=== PATIENT | male | born 1955 | race Caucasian/White ===

== ENCOUNTER 2016-07-08 12:55 | Observation (INO) | payer OTHER ==
[~2016-07-08] VITALS: Ht 190.5 cm; Wt 108.0 kg
[2016-07-08] MEDS ORDERED: SODIUM CHLORIDE 0.9% 1000ML 1,000 ML IV STA ×2 (13:27→17:57)
[2016-07-08] MEDS ORDERED: HYDROmorphone INJ 1 MG/ML SYR IV STA ×3 (13:27→15:48)
[2016-07-08] MEDS ORDERED: OMEP20CA9 PO (14:11)
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
[2016-07-08] MEDS ORDERED: LORAZEPAM 2 MG/ML 1 ML VIAL IV STA (14:38)
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
[2016-07-08] MEDS ORDERED: OXYC1TAB3 PO (17:25)
[2016-07-08] MEDS ORDERED: CYCL10TA6 PO (17:25)
[2016-07-08 17:27] LABS: POTASSIUM 4.3 mmol/L (3.5-5.1)
[2016-07-08 17:30] LABS: BASO % 0.4 %; BASO ABS # 0.04 K/uL (0-0.2); COMPLETE YES; EOS % 6.5 %; HEMATOCRIT 43.4 % (42-52); IG% 0.8 %; LYMPH % 22.4 %; LYMPH ABS # 2.51 K/uL (1.2-3.4); MEAN CELL VOLUME 92.9 fL (80-100); MEAN CORPUSCULAR HEMOGLOBIN 31.9 pg (25-34); MEAN CORPUSCULAR HGB CONC 34.3 g/dl (32-36); MEAN PLATELET VOLUME 9.8 fL (7.4-10.4); MONO % 9.3 %; NEUT % 60.6 %; PLATELET COUNT 357 K/uL (130-400); RED BLOOD COUNT 4.67 M/uL (4.7-6.1); WHITE BLOOD COUNT 11.22 K/uL (4.8-10.8)
[2016-07-08] MEDS ORDERED: FLEXERIL HOME PACK 10 MG VIAL PO ONE (17:30)
[2016-07-08] MEDS ORDERED: OXYCODONE IR HOME PACK PO ONE (17:30)
[2016-07-08 17:57] VITALS: Ht 190.5 cm; Wt 108.0 kg
[2016-07-08] MEDS ORDERED: OPTIRAY 320 IV PRN (18:15)
[2016-07-08] MEDS ORDERED: POLYETHYLENE (MIRALAX) 17 GM PACK PO PRN (18:30)
[2016-07-08] MEDS ORDERED: MoRPHine SULFATE 4 MG/ML 1 ML CARP\\VIAL IV PRN (18:30)
[2016-07-08] MEDS ORDERED: ACETAMINOPHEN 325 MG TAB PO PRN (18:30)
[2016-07-08] MEDS ORDERED: ENOXAPARIN 40 MG/0.4 ML SYR SQ SCH (18:30)
[2016-07-08] MEDS ORDERED: INFLUENZA VIRUS QUAD VACCINE 0.5 ML SYR IM. ONE ×2 (18:30→20:45)
[2016-07-08] MEDS ORDERED: ONDANSETRON INJ 2 MG/ML 2 ML VIAL IV PRN (18:30)
[2016-07-08] MEDS ORDERED: OXYCODONE/ACETAMINOPHEN 7.5-325 TAB PO PRN (18:30)
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
[2016-07-08 20:04] VITALS: O2SAT 93
[2016-07-08] MEDS ORDERED: INFLUENZA ADMINISTRATION CHARGE ONE (20:45)
[2016-07-08] MEDS ORDERED: IV FLUIDS COMPLETED PRN (21:00)
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
[2016-07-08] MEDS: LIDODERM (LIDOCAINE) PATCH 5% TD SCH (21:58)
[2016-07-08] MEDS: OXYCODONE/ACETAMINOPHEN 7.5-325 TAB PO SCH (21:58)
[2016-07-08] MEDS: LISINOPRIL/HCTZ 10/12.5MG TAB PO SCH (21:59)
[2016-07-08 22:08] LABS: INR 0.9 (0.9-1.1); PROTHROMBIN TIME (PATIENT) 9.8 SECONDS (9.0-12.0)
[2016-07-08 23:25] VITALS: BP 152/81; PULSE 96; TEMP 36.4; O2SAT 92
[2016-07-09] MEDS: OXYCODONE/ACETAMINOPHEN 7.5-325 TAB PO SCH ×5 (02:32→20:44)
[2016-07-09 05:42] LABS: HEMATOCRIT 39.5 % (42-52); MEAN CELL VOLUME 92.9 fL (80-100); MEAN CORPUSCULAR HEMOGLOBIN 31.5 pg (25-34); MEAN CORPUSCULAR HGB CONC 33.9 g/dl (32-36); PLATELET COUNT 280 K/uL (130-400); RED BLOOD COUNT 4.25 M/uL (4.7-6.1); WHITE BLOOD COUNT 7.51 K/uL (4.8-10.8)
[2016-07-09 06:02] LABS: INR 0.9 (0.9-1.1); PROTHROMBIN TIME (PATIENT) 9.9 SECONDS (9.0-12.0)
[2016-07-09 07:10] VITALS: BP 125/75; PULSE 88; TEMP 36.9; O2SAT 94
[2016-07-09] MEDS: HYDROmorphone INJ 1 MG/ML SYR IV PRN ×2 (07:24→10:03)
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
[2016-07-09] MEDS: LISINOPRIL/HCTZ 10/12.5MG TAB PO SCH (08:32)
[2016-07-09] MEDS: PANTOprazole SOD 40 MG TAB PO SCH (08:32)
[2016-07-09] MEDS: LIDODERM (LIDOCAINE) PATCH 5% TD SCH (08:33)
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
[2016-07-09 14:58] VITALS: BP 128/74; PULSE 89; TEMP 36.6; O2SAT 93
[2016-07-09] MEDS: DOCUSATE SODIUM 100 MG CAP PO SCH (20:43)
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
[2016-07-09 23:25] VITALS: BP 125/77; PULSE 92; TEMP 36.8; O2SAT 93
[2016-07-10] MEDS: OXYCODONE/ACETAMINOPHEN 7.5-325 TAB PO SCH ×4 (01:06→12:10)
[2016-07-10 03:20] VITALS: BP 128/74; PULSE 91; TEMP 36.7; O2SAT 92
[2016-07-10] MEDS ORDERED: PERFLUTREN LIPID MICROSPHERE (DEFINITY) IV ONE (07:37)
[2016-07-10 07:41] VITALS: BP 147/81; PULSE 90; TEMP 36.6; O2SAT 91
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
[2016-07-10] MEDS: DOCUSATE SODIUM 100 MG CAP PO SCH (08:26)
[2016-07-10] MEDS: LIDODERM (LIDOCAINE) PATCH 5% TD SCH (08:26)
[2016-07-10] MEDS: LISINOPRIL/HCTZ 10/12.5MG TAB PO SCH (08:26)
[2016-07-10] MEDS: PANTOprazole SOD 40 MG TAB PO SCH (08:26)
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
--- NOTE | 2016-07-10 09:18 | PROGRESS NOTE ---
DATE: 07/10/2016 SUBJECTIVE: He is improved this morning. Pain is decreased. Brace has been fitted. He has no bowel and bladder consequences. No neurological issues to report. He is alert, oriented. Examination is benign. 5/5 strength. Good sensation and motor ability. He does have continued pain. Images reviewed demonstrating a nondisplaced fracture of the L1 vertebral body, it is a compression fracture. They are painful. There is minimal displacement. It is a nonsurgical entity. IMPRESSION: Status post compression fracture. DISPOSITION: Back brace for support. Medication for support and pain control. Lidocaine patch is a good idea. Toradol sometimes can be very helpful in the ____ situations. He should just be up, ambulating, bed rest. This takes time to heal. I will see him back for followup examination in 2-3 weeks.
--- NOTE | 2016-07-10 10:31 | ECHOCARDIOGRAM REPORT ---
*NOTICE TO RECEIVING DEMOCRAT AGENCY This information is strictly Confidential and protected under [place] law. [place] law prohibits you from making any further disclosure of this information unless further disclosure is expressly permitted by the written consent of the person to whom it pertains or is authorized by law. A general authorization for the release of medical or other information is not sufficient for this purpose. Hospital accepts no responsibility if the information is made available to any other person, INCLUDING THE PATIENT. Interpretation Summary * Name: GAYLE RFAGA Study Date: 07/10/2016 06:42 AM BP: 147/81 mmHg * Patient Location: C.3E\S\E310\S\1 HR: 90 * : 1955 (M/d/yyyy) Gender: Male Height: 75 in * Age: 61 yrs Ethnicity: CA Weight: 238 lb * Ordering Physician: Elaine Yoon * Referring Physician: Self, Referred * Performed By: Sandor Toledo RCS * * Reason For Study: CHEST PAIN * BSA: 2.4 m2 * -- Conclusions -- * Normal LV chamber size and wall thickness. * Normal LV systolic function, EF 55-60%. * No segmental left ventricular wall motion abnormalities are noted. * Grade II diastolic dysfunction. * Aortic valve sclerosis mild, without significant aortic valvular stenosis. Mild to moderate aortic regurgitation with a anteriorly directed jet. Procedure Details * A complete two-dimensional transthoracic echocardiogram was performed (2D, M-mode, Doppler and color flow Doppler). Left Ventricle * The left ventricle is normal in size. * There is normal left ventricular wall thickness. * Ejection Fraction = 55-60%. * Left ventricular systolic function is normal. * No segmental left ventricular wall motion abnormalities are noted. * The left ventricular wall motion is normal. Right Ventricle * The right ventricular cavity size is normal (basal dimension <4.2 cm in right ventricular apical 4-chamber view). * The right ventricular systolic function is normal as assessed by tricuspid annular plane systolic excursion (TAPSE) (normal >1.5 cm). Atria * The left atrial size is normal. * Right atrial size is normal. * No ASD detected; PFO is not assessed. Mitral Valve * The mitral valve is normal in structure and function. Tricuspid Valve * The tricuspid valve is normal in structure and function. Aortic Valve * The aortic valve is trileaflet. * Aortic valve sclerosis mild, without significant aortic valvular stenosis. * No hemodynamically significant valvular aortic stenosis. * Mild to moderate aortic regurgitation. Pulmonic Valve * The pulmonary valve is not well seen, but the Doppler examination is normal without significant regurgitation or stenosis. Great Vessels * The aortic root is normal size. Pericardium/Pleural * There is no pericardial effusion. Left Ventricular Diastolic Function * Diastolic dysfunction, Grade II (pseudonormalization pattern). MMode 2D Measurements and Calculations IVSd 0.97 cm IVSs 1.2 cm LVIDd 6.0 cm LVIDs 4.4 cm LVPWd 1.1 cm IVS/LVPW 0.90 FS 27.2 % EDV(Teich) 181.0 ml ESV(Teich) 86.7 ml EF(Teich) 52.1 % EDV(cubed) 217.6 ml ESV(cubed) 83.9 ml EF(cubed) 61.4 % % IVS thick 26.6 % LV mass(C)d 256.5 grams LV mass(C)dI 108.6 grams/m\S\2 CO(Teich) 9.0 l/min CI(Teich) 3.8 l/min/m\S\2 SV(Teich) 94.4 ml SI(Teich) 39.9 ml/m\S\2 CO(cubed) 12.7 l/min CI(cubed) 5.4 l/min/m\S\2 SV(cubed) 133.7 ml SI(cubed) 56.6 ml/m\S\2 Ao root diam 3.8 cm Ao root area 11.5 cm\S\2 ACS 1.5 cm LA dimension 3.9 cm LA/Ao 1.0 LVOT diam 2.3 cm LVOT area 4.1 cm\S\2 LVAd ap4 49.8 cm\S\2 LVLd ap4 10.8 cm EDV(MOD-sp4) 188.0 ml LVAs ap4 26.9 cm\S\2 LVLs ap4 9.1 cm ESV(MOD-sp4) 64.5 ml EF(MOD-sp4) 65.7 % LVAd ap2 39.0 cm\S\2 LVLd ap2 9.5 cm EDV(MOD-sp2) 132.0 ml LVAs ap2 22.5 cm\S\2 LVLs ap2 8.1 cm ESV(MOD-sp2) 50.6 ml EF(MOD-sp2) 61.7 % CO(MOD-sp4) 11.7 l/min CI(MOD-sp4) 5.0 l/min/m\S\2 SV(MOD-sp4) 123.5 ml SI(MOD-sp4) 52.3 ml/m\S\2 CO(MOD-sp2) 7.7 l/min CI(MOD-sp2) 3.3 l/min/m\S\2 SV(MOD-sp2) 81.4 ml SI(MOD-sp2) 34.5 ml/m\S\2 Doppler Measurements and Calculations MV E max florin 65.5 cm/sec MV A max florin 57.5 cm/sec MV E/A 1.1 MV P1/2t max florin 100.8 cm/sec MV P1/2t 98.3 msec MVA(P1/2t) 2.2 cm\S\2 MV dec slope 300.3 cm/sec\S\2 MV dec time 0.27 sec Ao V2 max 255.9 cm/sec Ao max PG 26.5 mmHg Ao max PG (full) 21.9 mmHg Ao V2 mean 162.5 cm/sec Ao mean PG 12.8 mmHg Ao mean PG (full) 10.5 mmHg Ao V2 VTI 45.4 cm KWAKU(I,A) 1.6 cm\S\2 KWAKU(I,D) 1.6 cm\S\2 KWAKU(V,A) 1.7 cm\S\2 KWAKU(V,D) 1.7 cm\S\2 AI max florin 493.0 cm/sec AI max PG 97.2 mmHg AI dec slope 368.9 cm/sec\S\2 AI P1/2t 391.4 msec LV V1 max PG 4.6 mmHg LV V1 mean PG 2.3 mmHg LV V1 max 107.7 cm/sec LV V1 mean 70.7 cm/sec LV V1 VTI 17.4 cm SV(Ao) 520.7 ml SI(Ao) 220.4 ml/m\S\2 SV(LVOT) 71.2 ml SI(LVOT) 30.1 ml/m\S\2 PA V2 max 103.2 cm/sec PA max PG 4.3 mmHg PI max florin 175.8 cm/sec PI max PG 12.4 mmHg PI dec slope 137.8 cm/sec\S\2 PI P1/2t 373.6 msec
[2016-07-10 10:53] VITALS: BP 107/71; PULSE 94; TEMP 36.2; O2SAT 92
[2016-07-10] MEDS ORDERED: LDDP5 TD (12:17)
[2016-07-10] MEDS ORDERED: LSN/10125 PO (12:17)
[2016-07-10] MEDS ORDERED: CLC100 PO (12:17)
[2016-07-10] MEDS ORDERED: OXYC7.5T62 PO (12:17)
[2016-07-10] MEDS ORDERED: MRLP17 PO (12:17)
--- NOTE | 2016-07-10 13:06 | Discharge Instructions ---
Discharge Instructions Admission Reason for Admission: Back Pain Discharge Discharge Diagnosis / Problem: traumatic L3 vertebral fracture, 3/4 traumatic right rib fractures Discharge Goals Goal(s): Decrease discomfort, Prevent Disease Progression Activity Recommendations Activity Limitations: resume your previous activity Lifting Limitations: gradually increase as tolerated Exercise/Sports Limitations: gradually increase as tolerated Shower/Bathe: no limitations Driving or Machine Use: Do not drive after rafael pain medications . Instructions / Follow-Up Instructions / Follow-Up Please take all medications as instructed. You have been given a narcotic, oxycodone, to take for pain. This can cause constipation, so you have also been given laxatives to help your bowels move. Please do not drink alcohol or drive while taking this medication. Please note that it contains Tylenol and you may not exceed more than 3000mg of Tylenol from all sources in 24 hours. You have also been given a blood pressure medication to take which requires you to obtain non-fasting blood work in 2 weeks. You have been provided a prescription to get this done, or your PCP can order it for you. Please avoid using NSAIDs for pain while taking this drug (NSAIDs include aspirin, Motrin, Ibuprofen, Naproxen, Aleve, Mobic, etc) until otherwise instructed by PCP. Please ensure follow-up with Dr. Bryce Napier (Orthopedic Spine Surgeon) in the office in 2-3 weeks as instructed. You have a follow-up appointment scheduled with Dr. Jass Ortega for Jul 17 at 1300. Please bring all paperwork from this hospitalization with you to this appointment. It was a pleasure taking care of you! Call if you have any questions or problems. You can reach a [facility] hospitalist on duty at [facility] 24 hours a day by calling [phone]. Take care of yourself. Elaine Yoon DO [facility] Hospitalist Current Hospital Diet Patient's current hospital diet: AHA Diet (Heart Healthy) Discharge Diet Recommended Diet: Regular Diet Procedures Procedures Performed: None. Pending Studies Studies pending at discharge: no Medical Emergencies . Who to Call and When: Medical Emergencies: If at any time you feel your situation is an emergency, please call 911 immediately. . Non-Emergent Contact Non-Emergency issues call your: Primary Care Provider . . "Provider Documentation" section prepared by Elaine Yoon. VTE Core Measure Inpt VTE Proph given/why not?: SCD's, Contraindicated (poss hemothorax)
[2016-07-10 13:11] VITALS: BP 107/71; PULSE 94; TEMP 36.2; O2SAT 92
--- NOTE | 2016-07-10 14:08 | SURGERY PROGRESS NOTE ---
DATE: 07/10/2016 Mr. Washington was seen today. He feels better. Pain medication has been manipulated and he does feel better. In addition, his x-ray looks quite good. I do not really see much in the way of any fluid. He if anything has a bit of atelectasis on the left. All in all I think he looks good. I do not think any intervention is going to be required on our part. It would be good to get him up and moving around as he is at risk of a pulmonary embolism given his pain and inability to move freely.
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
== END 2016-07-10 15:30 | disposition home or self-care (01) ==
LOC: ENRESERVDT → ENRESERVTM → ENRESERV → EDBD 12:55 → C.EDC 12:56 → C.3E 18:30
PROVIDERS: ADMIT Hospitalist; ATTEND Internal Medicine
DX: S32.030A Wedge compression fracture of third lumbar vertebra, initial encounter for closed fracture (principal); S22.41XA Multiple fractures of ribs, right side, initial encounter for closed fracture; V43.52XA Car driver injured in collision with other type car in traffic accident, initial encounter; J90 Pleural effusion, not elsewhere classified; R07.89 Other chest pain; I10 Essential (primary) hypertension; M79.1 Myalgia; M62.838 Other muscle spasm

== ENCOUNTER → 2016-07-16 | Outpatient (CLI) | payer OTHER ==
[~2016-07-16] MED LIST: CLC100 PO; LDDP5 TD; LSN/10125 PO; MRLP17 PO; OMEP20CA9 PO; OXYC7.5T62 PO
[2016-07-16 16:42] LABS: BLOOD UREA NITROGEN 37 mg/dl (7-18); GLUCOSE 116 mg/dl (70-99)
[2016-07-16 16:43] LABS: BUN/CREATININE RATIO 26.5 (10-20); CALCIUM 9.9 mg/dl (8.5-10.1); CARBON DIOXIDE 28 mmol/L (21-32); CHLORIDE 103 mmol/L (98-107); POTASSIUM 4.5 mmol/L (3.5-5.1); SODIUM 139 mmol/L (136-145)
== END | disposition home or self-care (01) ==
LOC: C.LABBFT 10:47
PROVIDERS: ATTEND Hospitalist
DX: I10 Essential (primary) hypertension (principal)

== ENCOUNTER 2017-07-16 17:52 | Inpatient (IN) | payer OTHER ==
[~2017-07-16] VITALS: Ht 190.5 cm; Wt 105.5 kg
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
[2017-07-16 18:38] LABS: BASO ABS # 0.13 K/uL (0-0.2); EOS % 9.3 %; EOS ABS # 0.59 K/uL (0-0.5); HEMATOCRIT 41.2 % (42-52); HEMOGLOBIN 13.3 g/dL (14.0-18.0); IG# 0.01 K/uL (0.00-0.02); LYMPH % 15.9 %; LYMPH ABS # 1.01 K/uL (1.2-3.4); MEAN CELL VOLUME 93.2 fL (80-100); MEAN CORPUSCULAR HEMOGLOBIN 30.1 pg (25-34); MEAN CORPUSCULAR HGB CONC 32.3 g/dl (32-36); MEAN PLATELET VOLUME 9.5 fL (7.4-10.4); MONO % 9.1 %; MONO ABS # 0.58 K/uL (0.11-0.59); NEUT % 63.5 %; NEUT ABS # 4.05 K/uL (1.4-6.5); PLATELET COUNT 384 K/uL (130-400); RED CELL DISTRIBUTION WIDTH CV 14.3 % (11.5-14.5); RED CELL DISTRIBUTION WIDTH SD 48.6 fL (36.4-46.3); WHITE BLOOD COUNT 6.37 K/uL (4.8-10.8)
--- NOTE | 2017-07-16 18:41 | DIAGNOSTIC IMAGING REPORT ---
CHEST ONE VIEW PORTABLE CLINICAL HISTORY: Atypical chest pain and shortness of breath COMPARISON STUDY: 07/10/2016 FINDINGS: The heart is enlarged. There is radiographic evidence of congestive failure/fluid overload. There is a small right pleural effusion. There is a 4 cm right midlung zone opacity. 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 Radiographic follow-up is recommended[. There is no evidence of lobar consolidation IMPRESSION: 1. Cardiomegaly and radiographic evidence of mild congestive failure/fluid overload 2. Small right pleural effusion 3. 4 cm right midlung zone opacity, likely representing fluid loculated within the fissure. Radiographic follow-up will be necessary to confirm this impression. Electronically signed by: Gomez Hernandez M.D. 07/16/2017 6:39 PM Dictated Date/Time: 07/16/2017 6:38 PM
[2017-07-16 18:59] LABS: ALBUMIN 3.7 gm/dl (3.4-5.0); CALCIUM 9.5 mg/dl (8.5-10.1); CREATININE 1.48 mg/dl (0.60-1.40); POTASSIUM 4.4 mmol/L (3.5-5.1)
[2017-07-16 19:10] LABS: CKMB 1.9 ng/ml (0.5-3.6)
[2017-07-16] MEDS ORDERED: FUROSEMIDE 40 MG/4 ML VIAL IV STA (19:24)
[2017-07-16] MEDS ORDERED: LANS15CA6 PO (19:27)
[2017-07-16] MEDS ORDERED: IBUP-103 PO (19:27)
[2017-07-16] MEDS ORDERED: MELO15TA4 PO (19:27)
[2017-07-16 19:35] LABS: INR 1.1 (0.9-1.1); PTT PATIENT 25.7 SECONDS (21.0-31.0)
--- NOTE | 2017-07-16 20:09 | DIAGNOSTIC IMAGING REPORT ---
ULTRASOUND VENOUS DOPPLER LWR EXT BILA CLINICAL HISTORY: Leg swelling COMPARISON STUDY: No previous studies for comparison. FINDINGS: Real-time and color flow Doppler imaging were performed. Flow was seen within the femoral, popliteal and calf veins with no intraluminal thrombus demonstrated. The saphenous vein is patent. There is bilateral lower leg superficial edema. IMPRESSION: No evidence of lower extremity DVT. Electronically signed by: Gomez Hernandez M.D. 07/16/2017 8:08 PM Dictated Date/Time: 07/16/2017 8:07 PM
[2017-07-16] MEDS ORDERED: ACETAMINOPHEN 325 MG TAB PO PRN (21:00)
[2017-07-16] MEDS ORDERED: NITROGLYCERIN 0.4 MG SL PER TAB CHARGE SL PRN (21:00)
[2017-07-16] MEDS ORDERED: ONDANSETRON 8MG OD TAB PO PRN (21:00)
[2017-07-16] MEDS ORDERED: FUROSEMIDE INJ 40 MG in SYRINGE 0 ML IV STA (21:59)
--- NOTE | 2017-07-16 22:02 | History and Physical ---
History & Physical Date & Time of Service: Jul 16, 2017 at 22:02 Chief Complaint: Chf, Elevated Troponin Primary Care Physician: No Doctor, Assigned History of Present Illness Source: patient, hospital records The patient is a 62-year-old male who presents to emergency department with persistent shortness of breath and dyspnea on exertion that began 9 days ago, but avoided coming in due to the holiday season. His also had lower extremity swelling left worse than right, and is concerned about the possibility of clots. He has a known history of varicose veins and has had superficial thrombophlebitis in the past. He denies any change in eating habits such as increasing salt intake, and reports his solid and liquid intake of overall been good, however, his partner reports that he does not eat very regularly Past Medical/Surgical History Medical Problems: (1) Anxiety Status: Chronic (2) Asthma Status: Chronic (3) Depression Status: Chronic (4) Dyslipidemia Status: Chronic (5) GERD (gastroesophageal reflux disease) Status: Chronic (6) H/O undescended testicle Permanent Comment: age 13 - testicle lowered surgically Status: Resolved (7) Insomnia Status: Chronic Family History Noncontributory Social History Smoking Status: Never Smoker Smokeless Tobacco Use: No Alcohol Use: none Drug Use: none Marital Status: Housing status: lives with family Occupational Status: employed Immunizations History of Influenza Vaccine: Unknown History of Tetanus Vaccine?: Yes Tetanus Immunization Date: May 15, 2011 History of Pneumococcal: Yes Pneumococcal Date: Jun 19, 2011 History of Hepatitis B Vaccine: Unknown Multi-Drug Resistant Organisms History of MDRO: No Allergies Coded Allergies: No Known Allergies (Unverified , 07/08/16) Home Medications Scheduled Ibuprofen Tab (Advil), 400 MG PO QAM Lansoprazole (Prevacid), 15 MG PO QAM Meloxicam (Mobic), 15 MG PO QAM Review of Systems The patient denies chest pain, palpitations, sore throat, fevers, chills, nausea, vomiting, diarrhea or constipation, abdominal pain, pelvic pain, blood in urine or stool, dysuria, urinary frequency or urgency, lightheadedness , dizziness, headache, memory loss, loss of consciousness, rash, abnormal bruising or bleeding, imbalance, focal weakness, numbness or tingling in arms or legs, generalized arthralgias or myalgias, back or neck pain, or night sweats. The review of systems is otherwise negative other than for that already noted above, and at least 10 systems have been reviewed. Physical Exam Vital Signs Date Time Temp Pulse Resp B/P (MAP) Pulse Ox O2 Delivery O2 Flow Rate FiO2 07/16/17 21:45 112 20 143/97 95 Nasal Cannula 2.0 07/16/17 20:30 118 20 139/99 95 Nasal Cannula 2.0 07/16/17 19:19 116 07/16/17 18:45 96 Nasal Cannula 2.0 07/16/17 18:44 36.4 121 24 141/99 96 Nasal Cannula 2.0 07/16/17 17:56 34.8 128 16 128/84 100 Room Air The patient is awake, well-developed and adequately nourished, alert and oriented 3, normocephalic and atraumatic, lying in bed and in no acute distress. HEENT--PERRL, EOMI, mucous membranes and oropharynx normal. Neck--supple, no JVD or bruits, thyroid normal, trachea midline, no adenopathy. Heart--normal S1 and S2, no extra beats, no murmurs, rubs or gallops. Lungs--few coarse breath sounds bilaterally, with crackles at the bases, no respiratory distress, no accessory muscle use. Abdomen--normal bowel sounds and soft, nontender and nondistended, no hernias or masses, no organomegaly. Extremities--no cyanosis, clubbing.there is bilateral pretibial 1+ pitting edema. There are good distal pulses b/l. Dermatologic--normal skin turgor, normal color, warm and dry, no abnormal lymph nodes, no rash. Neurologic--cranial nerves II through XII grossly intact. Rheumatologic--normal range of motion. Psychiatric--normal affect. Diagnostics Laboratory Results Results Past 24 Hours Test 07/16/17 18:20 07/16/17 18:29 07/16/17 20:20 07/16/17 21:15 Range/Units White Blood Count 6.37 4.8-10.8 K/uL Red Blood Count 4.42 4.7-6.1 M/uL Hemoglobin 13.3 14.0-18.0 g/dL Hematocrit 41.2 42-52 % Mean Corpuscular Volume 93.2 80-100 fL Mean Corpuscular Hemoglobin 30.1 25-34 pg Mean Corpuscular Hemoglobin Concent 32.3 32-36 g/dl Platelet Count 384 130-400 K/uL Mean Platelet Volume 9.5 7.4-10.4 fL Neutrophils (%) (Auto) 63.5 % Lymphocytes (%) (Auto) 15.9 % Monocytes (%) (Auto) 9.1 % Eosinophils (%) (Auto) 9.3 % Basophils (%) (Auto) 2.0 % Neutrophils # (Auto) 4.05 1.4-6.5 K/uL Lymphocytes # (Auto) 1.01 1.2-3.4 K/uL Monocytes # (Auto) 0.58 0.11-0.59 K/uL Eosinophils # (Auto) 0.59 0-0.5 K/uL Basophils # (Auto) 0.13 0-0.2 K/uL RDW Standard Deviation 48.6 36.4-46.3 fL RDW Coefficient of Variation 14.3 11.5-14.5 % Immature Granulocyte % (Auto) 0.2 % Immature Granulocyte # (Auto) 0.01 0.00-0.02 K/uL Prothrombin Time 11.5 9.0-12.0 SECONDS Prothromb Time International Ratio 1.1 0.9-1.1 Activated Partial Thromboplast Time 25.7 21.0-31.0 SECONDS Partial Thromboplastin Ratio 1.0 D-Dimer 1890 0-500 ug/L FEU Sodium Level 140 136-145 mmol/L Potassium Level 4.4 3.5-5.1 mmol/L Chloride Level 109 98-107 mmol/L Carbon Dioxide Level 24 21-32 mmol/L Anion Gap 7.0 3-11 mmol/L Blood Urea Nitrogen 31 7-18 mg/dl Creatinine 1.48 0.60-1.40 mg/dl Est Creatinine Clear Calc Drug Dose 73.9 ml/min Estimated GFR () 58.8 Estimated GFR (Non- 50.7 BUN/Creatinine Ratio 20.9 10-20 Random Glucose 101 70-99 mg/dl Calcium Level 9.5 8.5-10.1 mg/dl Total Bilirubin 1.0 0.2-1 mg/dl Direct Bilirubin 0.4 0-0.2 mg/dl Aspartate Amino Transf (AST/SGOT) 28 15-37 U/L Alanine Aminotransferase (ALT/SGPT) 25 12-78 U/L Alkaline Phosphatase 134 45-117 U/L Total Creatine Kinase 93 39-308 U/L Creatine Kinase MB 1.9 0.5-3.6 ng/ml Creatine Kinase MB Ratio 2.0 0-3.0 Pro-B-Type Natriuretic Peptide 7228 0-900 pg/ml Total Protein 8.0 6.4-8.2 gm/dl Albumin 3.7 3.4-5.0 gm/dl Lipase 80 73-393 U/L Thyroid Stimulating Hormone (TSH) 11.700 0.300-4.500 uIu/ml Bedside Troponin I 0.120 0-0.045 ng/ml Urine Color YELLOW Urine Appearance CLEAR CLEAR Urine pH 5.0 4.5-7.5 Urine Specific [place] >= 1.030 1.000-1.030 Urine Protein 2+ NEG Urine Glucose (UA) NEG NEG Urine Ketones NEG NEG Urine Occult Blood NEG NEG Urine Nitrite NEG NEG Urine Bilirubin NEG NEG Urine Urobilinogen NEG NEG Urine Leukocyte Esterase NEG NEG Urine RBC 0-4 0-4 /hpf Urine WBC 1-5 0-5 /hpf Urine Epithelial Cells >30 0-5 /lpf Urine Bacteria 1+ NEG Urine Hyaline Casts >30 0-5 /lpf Urine Granular Casts 1-5 0 /lpf Urine Mucus PRESENT NONE PRSENT Troponin I 0.226 0-0.045 ng/ml Microbiology Results 07/16/17 Urine Culture, Received Pending Diagnostic Radiology Patient Name: GAYLE FRAGA Unit Number: [id number] Dictated: 07/16/171837 Transcribed: 07/16/171837 ARG Printed Date/Time: [~ rep prt dt]/[~ rep prt tm] [~ rep ct labl] - [~ rep ct ivnm] [facility] [place] [address] Dictated: 07/16/171837 Transcribed: 07/16/171837 ARG Printed Date/Time: [~ rep prt dt]/[~ rep prt tm] [~ rep ct labl] - [~ rep ct ivnm] CHEST ONE VIEW PORTABLE CLINICAL HISTORY: Atypical chest pain and shortness of breath COMPARISON STUDY: 07/10/2016 FINDINGS: The heart is enlarged. There is radiographic evidence of congestive failure/fluid overload. There is a small right pleural effusion. There is a 4 cm right midlung zone opacity. 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 Radiographic follow-up is recommended[. There is no evidence of lobar consolidation IMPRESSION: 1. Cardiomegaly and radiographic evidence of mild congestive failure/fluid overload 2. Small right pleural effusion 3. 4 cm right midlung zone opacity, likely representing fluid loculated within the fissure. Radiographic follow-up will be necessary to confirm this impression. Electronically signed by: Gomez Hernandez M.D. 07/16/2017 6:39 PM Dictated Date/Time: 07/16/2017 6:38 PM The status of this report is Signed. Draft = Not yet reviewed or approved by Radiologist. Signed = Reviewed and approved by Radiologist. <AttendingPhy></AttendingPhy> <FamilyPhy>No Doctor, Assigned</FamilyPhy> < PrimaryPhy>No Doctor, Assigned</PrimaryPhy> <UnitNumber>[id number]</UnitNumber> <VisitNumber>[id number]</VisitNumber> <PatientName>GAYLE FRAGA</PatientName> <DateOfBirth>1955</DateOfBirth> <Location>[facility]</Location> <ServiceDate></ServiceDate> <MNE>ESINDI</MNE> <OrderingPhy>Abrahan Butterfield M.D.</ OrderingPhy> <OrderingPhyMNE>f rep ord dr pérez</OrderingPhyMNE> <DictatingPhyMNE> f rep dict dr pérez</DictatingPhyMNE> <CCListMNE>f rep ct elisa</CCListMNE> < AdmittingPhyMNE>f pt admit dr pérez</AdmittingPhyMNE> <AttendingPhyMNE>f pt attend dr pérez</AttendingPhyMNE> <ConsultingPhyMNE>f pt consult dr pérez</ConsultingPhyMNE> <FamilyPhyMNE>f pt fam dr pérez</FamilyPhyMNE> <OtherPhyMNE>f pt other dr pérez</OtherPhyMNE> < PrimaryPhyMNE>f pt prim care dr pérez</PrimaryPhyMNE> <ReferringPhyMNE>f pt referring dr pérez</ReferringPhyMNE> Patient Name: GAYLE FRAGA Unit Number: [id number] Dictated: 07/16/172006 Transcribed: 07/16/172006 ARG Printed Date/Time: [~ rep prt dt]/[~ rep prt tm] [~ rep ct labl] - [~ rep ct ivnm] [facility] [place] [address] Dictated: 07/16/172006 Transcribed: 07/16/172006 ARG Printed Date/Time: [~ rep prt dt]/[~ rep prt tm] [~ rep ct labl] - [~ rep ct ivnm] ULTRASOUND VENOUS DOPPLER LWR EXT BILA CLINICAL HISTORY: Leg swelling COMPARISON STUDY: No previous studies for comparison. FINDINGS: Real-time and color flow Doppler imaging were performed. Flow was seen within the femoral, popliteal and calf veins with no intraluminal thrombus demonstrated. The saphenous vein is patent. There is bilateral lower leg superficial edema. IMPRESSION: No evidence of lower extremity DVT. Electronically signed by: Gomez Hernandez M.D. 07/16/2017 8:08 PM Dictated Date/Time: 07/16/2017 8:07 PM The status of this report is Signed. Draft = Not yet reviewed or approved by Radiologist. Signed = Reviewed and approved by Radiologist. <AttendingPhy></AttendingPhy> <FamilyPhy>No Doctor, Assigned</FamilyPhy> < PrimaryPhy>No Doctor, Assigned</PrimaryPhy> <UnitNumber>[id number]</UnitNumber> <VisitNumber>[id number]</VisitNumber> <PatientName>GAYLE FRAGA</PatientName> <DateOfBirth>1955</DateOfBirth> <Location>[facility]</Location> <ServiceDate></ServiceDate> <MNE>ESINDI</MNE> <OrderingPhy>Abrahan Butterfield M.D.</ OrderingPhy> <OrderingPhyMNE>f rep ord dr pérez</OrderingPhyMNE> <DictatingPhyMNE> f rep dict dr pérez</DictatingPhyMNE> <CCListMNE>f rep ct elisa</CCListMNE> < AdmittingPhyMNE>f pt admit dr pérez</AdmittingPhyMNE> <AttendingPhyMNE>f pt attend dr pérez</AttendingPhyMNE> <ConsultingPhyMNE>f pt consult dr pérez</ConsultingPhyMNE> <FamilyPhyMNE>f pt fam dr pérez</FamilyPhyMNE> <OtherPhyMNE>f pt other dr pérez</OtherPhyMNE> < PrimaryPhyMNE>f pt prim care dr pérez</PrimaryPhyMNE> <ReferringPhyMNE>f pt referring dr pérez</ReferringPhyMNE> EKG EKG shows sinus tachycardia at [address], [address]-T changes, PVCs are new compared to 07/09/16 Impression Assessment and Plan NSTEMI/ ACUTE CHF-- The patient will be admitted to telemetry for serial cardiac enzymes, cardiac rhythm monitoring and a 2-D echocardiogram with Dopplers. Start aspirin [address] on heparin IV standard concentration with bolus per protocol Start metoprolol tartrate 12.5 mg by mouth twice a day Blood pressure will not tolerate nitroglycerin ointment at this time. Consult cardiology OBEY-- he has been taking both ibuprofen and meloxicam, both of which will be held Repeat laboratories in a.m. If creatinine is improved in the a.m., might consider a CT of chest with contrast to further characterize pockets of fluid. D-dimer was elevated at 1890, and the venous Dopplers are negative, and picture is more consistent with CHF as opposed to PE. Hypothyroidism/TSH elevation at 11.7-- In his case because of associated cardiac issues, would start Synthroid 50 g by mouth daily GERD-- Change lansoprazole to pantoprazole per formulary interchange Level of Care Telemetry Advanced Directives Existing Advance Directive: No Existing Living Will: No Existing Power of Snow Fence Erector: No Resuscitation Status FULL RESUSCITATION VTE Prophylaxis VTE Risk Assessment Done? Y/N: Yes Risk Level: Moderate Given or contraindicated: Other Anticoagulation (heparin IV standard concentration with bolus) Social Service Consult None Apply
[2017-07-16 22:20] VITALS: BP 127/86; PULSE 117; TEMP 36.3; O2SAT 99; Ht 190.5 cm; Wt 105.5 kg
[2017-07-16] MEDS ORDERED: HEPARIN IV BOLUS 8,000 UNIT in SYRINGE 0 ML IV ONE (22:30)
[2017-07-16] MEDS: HEPARIN 25,000 UNIT/500ML D5W 500 ML IV PRN (22:43)
[2017-07-16 23:04] VITALS: BP 132/89; PULSE 113; TEMP 36.5; O2SAT 97
[2017-07-17] VITALS (11 sets, daily range): BP systolic 99–114; BP diastolic 62–81; PULSE 83–106; TEMP 36.3–36.6; O2SAT 93–98
[2017-07-17] MEDS ORDERED: METOPROLOL TARTRATE 25 MG TAB PO STA (04:35)
[2017-07-17 04:55] LABS: BASO % 2.1 %; BASO ABS # 0.12 K/uL (0-0.2); EOS % 13.5 %; EOS ABS # 0.76 K/uL (0-0.5); HEMATOCRIT 38.5 % (42-52); HEMOGLOBIN 12.4 g/dL (14.0-18.0); IG# 0.01 K/uL (0.00-0.02); LYMPH % 20.4 %; LYMPH ABS # 1.15 K/uL (1.2-3.4); MEAN CELL VOLUME 91.7 fL (80-100); MEAN CORPUSCULAR HEMOGLOBIN 29.5 pg (25-34); MEAN CORPUSCULAR HGB CONC 32.2 g/dl (32-36); MEAN PLATELET VOLUME 9.8 fL (7.4-10.4); MONO % 10.8 %; MONO ABS # 0.61 K/uL (0.11-0.59); PLATELET COUNT 346 K/uL (130-400); RED CELL DISTRIBUTION WIDTH CV 14.2 % (11.5-14.5); RED CELL DISTRIBUTION WIDTH SD 47.5 fL (36.4-46.3); WHITE BLOOD COUNT 5.65 K/uL (4.8-10.8)
[2017-07-17 05:27] LABS: PTT PATIENT 66.1 SECONDS (21.0-31.0)
[2017-07-17 05:38] LABS: CKMB 1.6 ng/ml (0.5-3.6)
[2017-07-17] MEDS: LEVOTHYROXINE 50 MCG TAB PO SCH (05:50)
[2017-07-17] MEDS ORDERED: INFLUENZA ADMINISTRATION CHARGE ONE (08:00)
[2017-07-17] MEDS ORDERED: INFLUENZA VIRUS QUAD VACCINE 0.5 ML SYR IM. ONE (08:00)
[2017-07-17] MEDS: ASPIRIN 81 MG ECTAB PO SCH (08:20)
[2017-07-17] MEDS: FUROSEMIDE INJ 40 MG in SYRINGE 0 ML IV SCH ×2 (08:22→17:15)
[2017-07-17] MEDS ORDERED: METOPROLOL TARTRATE 25 MG TAB PO SCH (09:00)
[2017-07-17 10:47] LABS: CALCIUM 9.2 mg/dl (8.5-10.1); CREATININE 1.64 mg/dl (0.60-1.40); POTASSIUM 4.1 mmol/L (3.5-5.1)
[2017-07-17] MEDS ORDERED: LORAZEPAM 0.5 MG TAB PO PRN (11:15)
--- NOTE | 2017-07-17 12:01 | DIAGNOSTIC IMAGING REPORT ---
NUCLEAR PULMONARY VENTILATION/PERFUSION SCAN CLINICAL HISTORY: CHF. Elevated troponin. COMPARISON STUDY: Chest x-ray dated 07/16/2017. Chest CT dated 07/08/2016. TECHNIQUE: Initially, ventilation images of both lungs are obtained following the inhalation of 32 mCi of aerosolized technetium 99m DTPA. Subsequently, perfusion images of both lungs were obtained following the IV administration of 5.6 mCi of technetium 99m MAA. Ventilation and perfusion images were acquired in the anterior, posterior, and oblique projections. FINDINGS: A chest x-ray performed 07/16/2017 shows cardiomegaly and pulmonary vascular congestion. 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 The ventilation of both lungs is markedly heterogeneous. Inhaled tracer is noted in the stomach. Pulmonary perfusion is heterogeneous. There is a photopenic defect overlying the right major fissure, likely representing fluid along the fissure when correlated with chest x-ray. Small for definitive defects are noted in the perihilar left lung. IMPRESSION: Findings are considered indeterminate for pulmonary embolus which would be impossible to exclude. Correlation with a CT angiogram of the chest is recommended if there is clinical concern for pulmonary embolus. Electronically signed by: Donnell Starks M.D. 07/17/2017 12:00 PM Dictated Date/Time: 07/17/2017 11:57 AM
--- NOTE | 2017-07-17 12:30 | ECHOCARDIOGRAM REPORT ---
*NOTICE TO RECEIVING LIBERTARIAN AGENCY This information is strictly Confidential and protected under [place] law. [place] law prohibits you from making any further disclosure of this information unless further disclosure is expressly permitted by the written consent of the person to whom it pertains or is authorized by law. A general authorization for the release of medical or other information is not sufficient for this purpose. Hospital accepts no responsibility if the information is made available to any other person, INCLUDING THE PATIENT. Interpretation Summary * Name: GAYLE FRAGA Study Date: 07/17/2017 07:11 AM BP: 109/77 mmHg * Patient Location: C.2T\S\S240\S\2 HR: 96 * : 1955 (M/d/yyyy) Gender: Male Height: 75 in * Age: 62 yrs Ethnicity: [place] Weight: 263 lb * Ordering Physician: José Thomas * Referring Physician: Self, Referred * Performed By: Indu Ly RDCS * * Reason For Study: CHF * BSA: 2.5 m2 * -- Conclusions -- * 1. Mildly dilated LV. Mild concentric LVH. * 2. Severe global LV dysfunction. LVEF 15-20%. * 3. Mildly dilated RV with mild RV dysfunction. * 4. Aortic valve sclerosis. Mild to moderate aortic regurgitation. * 5. Mild mitral regurgitation. * 6. Mild TR. Est PASP 35-40. Dilated IVC. Est RA 15 mmHg. * 7. Compared with prior study on 07/10/2016: Severe LV dysfunction is new. Procedure Details * A contrast injection of Definity was performed to improve assessment of LV function. * Contrast was injected into an intravenous site in the right arm. * One vial of Definity ultrasound contrast was diluted in normal saline to a total volume of 10 ml. A total of '2' ml of solution was administered during imaging. * Lot # [id number] of Definity utilized for procedure. * Expiration date 1 AUG 26. * The attending nurse who injected the contrast agent was KENNETH CARABALLO. Left Ventricle * The left ventricle is mildly dilated. * There is no thrombus. * There is mild concentric left ventricular hypertrophy. * Ejection Fraction = 15-20%. * There is severe global hypokinesis of the left ventricle. Right Ventricle * The right ventricle is mildly dilated. * The right ventricular systolic function is mildly reduced. Atria * The left atrium is mildly dilated. * The right atrium is severely dilated. * No ASD detected; PFO is not assessed. Mitral Valve * The mitral valve is grossly normal. * Mitral stenosis is absent. * There is mild mitral regurgitation. Tricuspid Valve * The tricuspid valve is not well visualized, but is grossly normal. * There is mild tricuspid regurgitation. * Right ventricular systolic pressure is elevated at 30-40mmHg. Aortic Valve * Aortic valve sclerosis mild, without significant aortic valvular stenosis. * The aortic valve is trileaflet. * Mild to moderate aortic regurgitation. Pulmonic Valve * The pulmonary valve is inadequately visualized, but the Doppler data is adequate for interpretation. * Pulmonic stenosis is absent. * Mild pulmonic valvular regurgitation. Great Vessels * The aortic root and proximal ascending aorta are normal sized. Pericardium/Pleural * There is no pericardial effusion. Great Vessels * Dilated inferior vena cava with reduced collapsability with sniff indicates an elevated right atrial pressure of 15 mmHg MMode 2D Measurements and Calculations IVSd 1.3 cm IVSs 1.3 cm LVIDd 5.3 cm LVIDs 4.6 cm LVPWd 1.4 cm LVPWs 1.9 cm IVS/LVPW 0.93 FS 13.3 % EDV(Teich) 136.2 ml ESV(Teich) 97.6 ml EF(Teich) 28.3 % EDV(cubed) 150.1 ml ESV(cubed) 97.7 ml EF(cubed) 34.9 % % IVS thick 3.4 % % LVPW thick 34.8 % LV mass(C)d 298.7 grams LV mass(C)dI 121.2 grams/m\S\2 LV mass(C)s 313.8 grams LV mass(C)sI 127.3 grams/m\S\2 SV(Teich) 38.6 ml SI(Teich) 15.6 ml/m\S\2 SV(cubed) 52.4 ml SI(cubed) 21.3 ml/m\S\2 Ao root diam 3.4 cm Ao root area 9.0 cm\S\2 LA dimension 4.2 cm LA/Ao 1.2 LVAd ap4 49.4 cm\S\2 LVLd ap4 10.7 cm EDV(MOD-sp4) 185.1 ml EDV(sp4-el) 194.5 ml LVAs ap4 37.7 cm\S\2 LVLs ap4 9.6 cm ESV(MOD-sp4) 124.8 ml ESV(sp4-el) 125.4 ml EF(MOD-sp4) 32.6 % EF(sp4-el) 35.5 % LVAd ap2 48.2 cm\S\2 LVLd ap2 10.2 cm EDV(MOD-sp2) 188.6 ml EDV(sp2-el) 193.8 ml LVAs ap2 38.9 cm\S\2 LVLs ap2 9.4 cm ESV(MOD-sp2) 138.8 ml ESV(sp2-el) 136.4 ml EF(MOD-sp2) 26.4 % EF(sp2-el) 29.6 % LVLd %diff -4.81 % EDV(MOD-bp) 189.2 ml LVLs %diff -2.18 % ESV(MOD-bp) 132.1 ml EF(MOD-bp) 30.2 % SV(MOD-sp4) 60.3 ml SI(MOD-sp4) 24.4 ml/m\S\2 SV(MOD-sp2) 49.8 ml SI(MOD-sp2) 20.2 ml/m\S\2 SV(MOD-bp) 57.0 ml SI(MOD-bp) 23.1 ml/m\S\2 SV(sp4-el) 69.1 ml SI(sp4-el) 28.0 ml/m\S\2 SV(sp2-el) 57.5 ml SI(sp2-el) 23.3 ml/m\S\2 Doppler Measurements and Calculations MV E max florin 85.4 cm/sec MV A max florin 44.6 cm/sec MV E/A 1.9 MV dec time 0.09 sec Ao V2 max 151.3 cm/sec Ao max PG 9.2 mmHg Ao max PG (full) 7.5 mmHg AI max florin 384.4 cm/sec AI max PG 59.1 mmHg AI dec slope 196.3 cm/sec\S\2 AI P1/2t 573.7 msec LV V1 max PG 1.7 mmHg LV V1 max 64.5 cm/sec TR max florin 241.8 cm/sec
[2017-07-17] MEDS ORDERED: ATORVASTATIN 40 MG TAB PO ONE (13:00)
--- NOTE | 2017-07-17 13:20 | Hospitalist Progress Note ---
Hospitalist Progress Note Date of Service Jul 17, 2017. Subjective Pt evaluation today including: conversation w/ patient, conversation w/ family Feeling better than on admission, legs less swollen, less SOB. Discussed ECHO results. He is agreeable to cath. All Other Systems: Reviewed and Negative Objective Vital Signs Date Time Temp Pulse Resp B/P (MAP) Pulse Ox O2 Delivery O2 Flow Rate FiO2 07/17/17 11:17 36.4 95 18 102/66 (78) 96 Room Air 07/17/17 08:00 Room Air 07/17/17 07:36 36.4 96 18 109/77 (88) 96 Room Air 07/17/17 04:00 95 Room Air 07/17/17 03:32 36.4 106 18 114/81 (92) 95 Room Air 07/16/17 23:59 Room Air 07/16/17 23:04 36.5 113 17 132/89 (103) 97 Room Air 07/16/17 22:20 36.3 117 22 127/86 99 Room Air 07/16/17 21:45 112 20 143/97 95 Nasal Cannula 2.0 07/16/17 20:30 118 20 139/99 95 Nasal Cannula 2.0 07/16/17 19:19 116 07/16/17 18:45 96 Nasal Cannula 2.0 07/16/17 18:44 36.4 121 24 141/99 96 Nasal Cannula 2.0 07/16/17 17:56 34.8 128 16 128/84 100 Room Air Physical Exam General Appearance: WD/WN, no apparent distress Eyes: normal inspection, sclerae normal ENT: hearing grossly normal Neck: supple, thyroid normal (no nodules palpable), no carotid bruits, trachea midline, + JVD (to jaw) Respiratory/Chest: no respiratory distress, no accessory muscle use, + decreased breath sounds (at bases bilat) Cardiovascular: regular rate, rhythm, no murmur, + pertinent finding (2+ pitting edema to knees bilat) Abdomen: normal bowel sounds, non tender, soft, no organomegaly Extremities: no calf tenderness, + swelling (as above 2+ pitting edema L>R), + pertinent finding (varicose vein on left) Neurologic/Psychiatric: alert, normal mood/affect, oriented x 3 Skin: normal color, warm/dry, no rash Laboratory Results Last 24 Hours Test 07/16/17 18:20 07/16/17 18:29 07/16/17 20:20 07/16/17 21:15 White Blood Count 6.37 K/uL Red Blood Count 4.42 M/uL Hemoglobin 13.3 g/dL Hematocrit 41.2 % Mean Corpuscular Volume 93.2 fL Mean Corpuscular Hemoglobin 30.1 pg Mean Corpuscular Hemoglobin Concent 32.3 g/dl Platelet Count 384 K/uL Mean Platelet Volume 9.5 fL Neutrophils (%) (Auto) 63.5 % Lymphocytes (%) (Auto) 15.9 % Monocytes (%) (Auto) 9.1 % Eosinophils (%) (Auto) 9.3 % Basophils (%) (Auto) 2.0 % Neutrophils # (Auto) 4.05 K/uL Lymphocytes # (Auto) 1.01 K/uL Monocytes # (Auto) 0.58 K/uL Eosinophils # (Auto) 0.59 K/uL Basophils # (Auto) 0.13 K/uL RDW Standard Deviation 48.6 fL RDW Coefficient of Variation 14.3 % Immature Granulocyte % (Auto) 0.2 % Immature Granulocyte # (Auto) 0.01 K/uL Prothrombin Time 11.5 SECONDS Prothromb Time International Ratio 1.1 Activated Partial Thromboplast Time 25.7 SECONDS Partial Thromboplastin Ratio 1.0 D-Dimer 1890 ug/L FEU Sodium Level 140 mmol/L Potassium Level 4.4 mmol/L Chloride Level 109 mmol/L Carbon Dioxide Level 24 mmol/L Anion Gap 7.0 mmol/L Blood Urea Nitrogen 31 mg/dl Creatinine 1.48 mg/dl Est Creatinine Clear Calc Drug Dose 73.9 ml/min Estimated GFR () 58.8 Estimated GFR (Non- 50.7 BUN/Creatinine Ratio 20.9 Random Glucose 101 mg/dl Calcium Level 9.5 mg/dl Total Bilirubin 1.0 mg/dl Direct Bilirubin 0.4 mg/dl Aspartate Amino Transf (AST/SGOT) 28 U/L Alanine Aminotransferase (ALT/SGPT) 25 U/L Alkaline Phosphatase 134 U/L Total Creatine Kinase 93 U/L Creatine Kinase MB 1.9 ng/ml Creatine Kinase MB Ratio 2.0 Pro-B-Type Natriuretic Peptide 7228 pg/ml Total Protein 8.0 gm/dl Albumin 3.7 gm/dl Lipase 80 U/L Thyroid Stimulating Hormone (TSH) 11.700 uIu/ml Bedside Troponin I 0.120 ng/ml Urine Color YELLOW Urine Appearance CLEAR Urine pH 5.0 Urine Specific Kidder >= 1.030 Urine Protein 2+ Urine Glucose (UA) NEG Urine Ketones NEG Urine Occult Blood NEG Urine Nitrite NEG Urine Bilirubin NEG Urine Urobilinogen NEG Urine Leukocyte Esterase NEG Urine RBC 0-4 /hpf Urine WBC 1-5 /hpf Urine Epithelial Cells >30 /lpf Urine Bacteria 1+ Urine Hyaline Casts >30 /lpf Urine Granular Casts 1-5 /lpf Urine Mucus PRESENT Troponin I 0.226 ng/ml Test 07/17/17 04:32 07/17/17 09:54 07/17/17 12:35 White Blood Count 5.65 K/uL Red Blood Count 4.20 M/uL Hemoglobin 12.4 g/dL Hematocrit 38.5 % Mean Corpuscular Volume 91.7 fL Mean Corpuscular Hemoglobin 29.5 pg Mean Corpuscular Hemoglobin Concent 32.2 g/dl Platelet Count 346 K/uL Mean Platelet Volume 9.8 fL Neutrophils (%) (Auto) 53.0 % Lymphocytes (%) (Auto) 20.4 % Monocytes (%) (Auto) 10.8 % Eosinophils (%) (Auto) 13.5 % Basophils (%) (Auto) 2.1 % Neutrophils # (Auto) 3.00 K/uL Lymphocytes # (Auto) 1.15 K/uL Monocytes # (Auto) 0.61 K/uL Eosinophils # (Auto) 0.76 K/uL Basophils # (Auto) 0.12 K/uL RDW Standard Deviation 47.5 fL RDW Coefficient of Variation 14.2 % Immature Granulocyte % (Auto) 0.2 % Immature Granulocyte # (Auto) 0.01 K/uL Activated Partial Thromboplast Time 66.1 SECONDS Partial Thromboplastin Ratio 2.5 Total Creatine Kinase 53 U/L Creatine Kinase MB 1.6 ng/ml Creatine Kinase MB Ratio 3.0 Troponin I 0.232 ng/ml Hepatitis C Antibody Screen NEG Sodium Level 139 mmol/L Potassium Level 4.1 mmol/L Chloride Level 107 mmol/L Carbon Dioxide Level 23 mmol/L Anion Gap 10.0 mmol/L Blood Urea Nitrogen 32 mg/dl Creatinine 1.64 mg/dl Est Creatinine Clear Calc Drug Dose 66.0 ml/min Estimated GFR () 51.9 Estimated GFR (Non- 44.8 BUN/Creatinine Ratio 19.2 Random Glucose 118 mg/dl Calcium Level 9.2 mg/dl Magnesium Level 2.2 mg/dl Assessment and Plan Pt is a 62 yo male with a h/o borderline HTN, GERD, who presents with progressively worsening SOB, leg swelling, and fatigue for about 2 weeks. He was found to be in florid acute CHF and had a positive troponin. Acute combined systolic and diastolic CHF-new onset/Elevated troponin-unclear if had acute coronary event 2-3 weeks ago. Troponin mildly elevated but stable. Has had 15 lbs weight gain over the last 2-3 weeks. D-dimer elevated at 1890, Dopplers LEs neg for DVT, V/Q indeterminate, cannot do CTA Chest due to OBEY. CXR with obvious CHF, BNP elevated at 7228 LE edema and SOB improving with IV diuresis, however sales support coordinator bumped up a bit to 1.68. ECHO today significantly changed from 1 year ago now with: * 1. Mildly dilated LV. Mild concentric LVH. * 2. Severe global LV dysfunction. LVEF 15-20%. * 3. Mildly dilated RV with mild RV dysfunction. * 4. Aortic valve sclerosis. Mild to moderate aortic regurgitation. * 5. Mild mitral regurgitation. * 6. Mild TR. Est PASP 35-40. Dilated IVC. Est RA 15 mmHg. * 7. Compared with prior study on 07/10/2016: Severe LV dysfunction is new. -Discussed case with Cardiology today--> needs cardiac catheterization tomorrow if renal function improved-made NPO after midnight -continue IV diuresis with lasix given significant volume overload -continue aspirin 81 mg daily -continue heparin IV gtt for now -increase metoprolol tartrate 12.5 mg to tid -add on atorvastatin 40mg daily -eventually add on ACEI when renal function improves/stabilizes -Consult cardiology appreciated -not likely to have PE, remains on heparin gtt, consider CTA Chest or repeat V/ Q in the future, but picture is more consistent with CHF as opposed to PE. OBEY--sales support coordinator 1 year ago was 1.0, then 1.4 on admission, now up to 1.68 with IV diuresis. Likely related to CHF and prerenal from lasix Also, he has been taking both ibuprofen and meloxicam, both of which will be held -will continue diuresis for now given significant volume overload -follow PRP Hypothyroidism/TSH elevation at 11.7--no h/o thyroid issues. No nodules or thyromegaly on exam In his case because of associated cardiac issues, would start Synthroid 50 g by mouth daily -check FT3, FT4 today ANxiety-situational due to acute medical issue -lorazepam prn GERD--stable -continue PPI Proph-heparin gtt Dispo-remain on tele FULL CODE
[2017-07-17] MEDS: METOPROLOL TARTRATE 25 MG TAB PO SCH ×2 (13:53→21:17)
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
[2017-07-17] MEDS: HEPARIN 25,000 UNIT/500ML D5W 500 ML IV PRN (15:36)
--- NOTE | 2017-07-17 17:45 | CARDIOLOGY PROGRESS NOTE ---
DATE: 07/17/2017 SUBJECTIVE: Mr. Washington experienced an episode of an "elephant on my chest" just prior to my evaluation. The patient's discomfort lasted for approximately 20 minutes. He has been experiencing the same sensation prior to his hospitalization. His discomfort resolved spontaneously. With the at the bedside, we had a long discussion regarding the need for cardiac evaluation. The patient's is concerned performing a cardiac catheterization at this institution as we do not have cardiothoracic surgery. She is interested in considering cardiac catheterization in [place]. The is uncertain how to proceed further. OBJECTIVE: VITAL SIGNS: Blood pressure is 114/80 with a regular pulse of 80. Respiratory rate is 20. The patient is afebrile at 36.6 degrees Celsius. Saturations 90% on room air. NECK: Supple with full carotid upstrokes. No obvious bruits. Jugular venous pressure is flat at 90 degrees. There is no thyromegaly. CARDIOVASCULAR: Reveals a regular rhythm with a normal S1 and S2. Heart sounds are distant. No obvious murmurs. LUNGS: Clear without rales, rhonchi, or wheezes. ABDOMEN: Soft without bruits. EXTREMITIES: Reveal intact radial artery pulses bilaterally. 1+ pretibial edema is noted. DATA: EKG performed just after his chest discomfort notes sinus rhythm with an occasional PVC. There is a nonspecific ST and T-wave abnormality. This is unchanged from the tracing done this morning at 6:14. IMPRESSION AND PLAN: Chest pain syndrome -- concerning for angina pectoris. I suggest that the patient and his strongly consider a cardiac catheterization to be performed in the very near future. As above, they are uncertain as to where this should be performed. Fortunately, his EKG shows no acute changes. Case was discussed in detail with Dr. Sorensen. Would continue intravenous heparin and his beta ollie. Agree with trending cardiac enzymes. JONY
[2017-07-18] VITALS (8 sets, daily range): BP systolic 92–117; BP diastolic 65–79; PULSE 72–87; TEMP 36.3–36.7; O2SAT 95–98
[2017-07-18] MEDS: LEVOTHYROXINE 50 MCG TAB PO SCH (06:00)
[2017-07-18 07:28] LABS: BASO % 1.5 %; BASO ABS # 0.07 K/uL (0-0.2); EOS % 2.4 %; EOS ABS # 0.11 K/uL (0-0.5); HEMATOCRIT 41.6 % (42-52); HEMOGLOBIN 13.6 g/dL (14.0-18.0); IG# 0.01 K/uL (0.00-0.02); LYMPH % 21.9 %; LYMPH ABS # 1.02 K/uL (1.2-3.4); MEAN CELL VOLUME 91.6 fL (80-100); MEAN CORPUSCULAR HGB CONC 32.7 g/dl (32-36); MEAN PLATELET VOLUME 9.8 fL (7.4-10.4); MONO % 11.2 %; MONO ABS # 0.52 K/uL (0.11-0.59); NEUT % 62.8 %; NEUT ABS # 2.92 K/uL (1.4-6.5); PLATELET COUNT 380 K/uL (130-400); RED CELL DISTRIBUTION WIDTH CV 14.5 % (11.5-14.5); RED CELL DISTRIBUTION WIDTH SD 48.9 fL (36.4-46.3); WHITE BLOOD COUNT 4.65 K/uL (4.8-10.8)
[2017-07-18] MEDS: METOPROLOL TARTRATE 25 MG TAB PO SCH (07:35)
[2017-07-18] MEDS: ATORVASTATIN 40 MG TAB PO SCH (07:35)
[2017-07-18] MEDS: ASPIRIN 81 MG ECTAB PO SCH (07:35)
[2017-07-18 08:02] LABS: PTT PATIENT 46.2 SECONDS (21.0-31.0)
[2017-07-18 08:10] LABS: CREATININE 1.76 mg/dl (0.60-1.40)
[2017-07-18 08:11] LABS: CALCIUM 9.2 mg/dl (8.5-10.1); POTASSIUM 3.9 mmol/L (3.5-5.1)
--- NOTE | 2017-07-18 09:26 | CARDIOLOGY PROGRESS NOTE ---
DATE: 07/18/2017 TIME: 9:00 a.m. SUBJECTIVE: Mr. Washington had 2 episodes of "elephant sitting on my chest." One episode happened yesterday afternoon and resolved within a few minutes. He had another episode for a few seconds overnight. He then was given supplemental oxygen and he has not had any further episodes and feels well. He denies orthopnea, syncope, near syncope, or palpitations. He did have intermittent shortness of breath but feels asymptomatic currently. Yesterday we had discussed cardiac catheterization. He is willing to undergo the procedure. There was some concern yesterday from his stating that she may want the procedure to be done in the [facility]. We had a long conversation about this today. Both he and she were personally informed that if they feel more comfortable having the procedure done at another facility with CT surgery backup, we would help facilitate this transfer. Ultimately, they have chosen to remain at this facility to have a diagnostic cardiac catheterization performed and PCI, if deemed appropriate, when it is appropriate for the test to be completed. OBJECTIVE: VITAL SIGNS: Temperature 36.6 degrees, heart rate 72 beats per minute, respiration rate 20, blood pressure 117/79 mmHg, oxygen saturation is 98% on 2 liters per nasal cannula. I's and O's negative 136 mL yesterday, weight is 116.6 kg. GENERAL: No acute distress. He is alert. NECK: JVD to the mandible sitting upright. CARDIAC EXAMINATION: No ventricular heave, regular, normal S1 and S2. There is an audible S3. 1/6 holosystolic murmur best heard at the apex. LUNGS: Decreased breath sounds at the bases, otherwise clear. ABDOMEN: Soft, nontender, nondistended. Normoactive bowel sounds. EXTREMITIES: 1+ bilateral lower extremity edema to the hips. No cyanosis. PSYCHIATRIC: Affect appears appropriate. MEDICATIONS: Include aspirin 81 mg daily, Lipitor 40 mg daily, Lasix 40 mg IV b.i.d., heparin drip per protocol, levothyroxine 50 mcg daily, metoprolol tartrate 12.5 mg p.o. t.i.d. LABORATORY DATA: Sodium 140, potassium 3.9, BUN 37, creatinine 1.76 up from 1.64, magnesium 2.1. Peak troponin 0.256. WBC 4.65, hemoglobin 13.6, platelets 380, VQ scan was performed yesterday and considered indeterminate for pulmonary embolism. ECG personally reviewed from this morning, sinus rhythm with PVCs. Nonspecific T-wave abnormality. Telemetry personally reviewed. No further arrhythmia. Sinus rhythm with PVCs. ASSESSMENT AND PLAN: 1. Acute systolic congestive heart failure: He is still significantly hypervolemic and did not diurese significantly. We will give Diuril 250 mg IV prior to this morning's dose of Lasix. We will likely increase Lasix as well to 80 mg twice daily if he does not start diuresing soon. With worsening renal function, dobutamine will also be started 2.5 mcg per kilogram per minute and may be adjusted if necessary. Strict I's and O's, daily weights and low sodium diet recommended. 2. Cardiomyopathy: We once again discussed possible etiologies; however, etiology is not known at this time. Given strong family history and other risk factors, would consider ischemic evaluation. We discussed this in detail. He and his would like to proceed with coronary angiography performed at this facility when appropriate. There is no urgent indication as he is currently without any type of chest discomfort. We would like to see some improvement in his kidneys before proceeding. Therefore, we will adjust medications today. Carvedilol 3.125 mg twice daily we started in place of metoprolol tartrate. Holding off on LIBIA inhibitor given the worsening renal function. We will consider spironolactone as well if renal function stabilizes/improves. We discussed the fact that it may take several days to optimize his kidney function prior to performing cardiac catheterization so that they are aware if this should occur several days from now. 3. Supraventricular tachycardia: Appear to have atrial tachycardia on telemetry during the first 24 hours. No recurrence on beta ollie. Continue beta ollie with changes as above. 4. Dyslipidemia: Continue high intensity statin therapy. 5. Elevated troponins: Not diagnostic of myocardial infarction. Treatment as above. On heparin. 6. Chest pain: Could be secondary to heart failure or underlying ischemic heart disease. Continue heparin given the fact that he did have a few episodes of chest discomfort with minimally elevated troponins and his overall presentation. 7. Aortic regurgitation: Non-severe. This can be followed over time. 8. Disposition: Highly complex medical issues. Cardiology will continue to follow. The patient's care will be discussed with Dr. Anderson, primary hospitalist service. Goal net fluid balance for the day would be at least 1 liter negative.
[2017-07-18] MEDS ORDERED: HEPARIN IV BOLUS 4,000 UNIT in SYRINGE 0 ML IV ONE (09:30)
[2017-07-18] MEDS ORDERED: CHLOROTHIAZIDE INJ 250 MG in DEXTROSE 5% 50ML 50 ML IV ONE (09:30)
[2017-07-18] MEDS: DOBUTamine / D5W 500 MG IV SCH (10:13)
[2017-07-18] MEDS: HEPARIN 25,000 UNIT/500ML D5W 500 ML IV PRN ×2 (10:14→21:31)
[2017-07-18] MEDS: FUROSEMIDE INJ 40 MG in SYRINGE 0 ML IV SCH ×2 (10:58→16:35)
[2017-07-18 14:31] LABS: CALCIUM 8.9 mg/dl (8.5-10.1); CREATININE 1.87 mg/dl (0.60-1.40); POTASSIUM 3.4 mmol/L (3.5-5.1)
[2017-07-18 14:40] LABS: PTT PATIENT 83.7 SECONDS (21.0-31.0)
--- NOTE | 2017-07-18 14:47 | Progress Note ---
Subjective Date of Service: Jul 18, 2017. Subjective Pt evaluation today including: conversation w/ patient, physical exam, lab review, conversation w/ [employer] operations consultant, review of inpatient medication list Pain: no chest pain today PO Intake: adequate Voiding: no voiding problems patient feeling okay today, no chest pressure today discussed with Dr. Elizabeth, hold on [facility] today going to add Diuril, dobutamine for increased UO Cr up to 1.76, electrolytes stable Problem List Medical Problems: (1) CHF (congestive heart failure) Status: Acute (2) Elevated troponin Status: Acute (3) Lumbar compression fracture Status: Acute (4) Peripheral edema Status: Acute Review of Systems Constitutional: + weakness, + fatigue Respiratory: + shortness of breath, + dyspnea on exertion Cardiac: + chest pain (yesterday), + edema All Other Systems: Reviewed and Negative Medications Current Inpatient Medications Medications (Trade) Dose Ordered Sig/Rosalie Route Start Time Stop Time Status Last Admin Dose Admin Acetaminophen (Tylenol Tab) 650 mg Q4H PRN PO 07/16/17 21:00 08/15/17 20:59 Nitroglycerin (Nitrostat Tab) 0.4 mg UD PRN SL 07/16/17 21:00 08/15/17 20:59 Aspirin (Ecotrin Tab) 81 mg QAM PO 07/17/17 09:00 08/16/17 08:59 07/18/17 07:35 81 MG Ondansetron HCl (Zofran Odt) 8 mg Q6H PRN PO 07/16/17 21:00 08/15/17 20:59 Furosemide 40 mg/ Syringe 4 ml @ 4 mls/min BID17 IV 07/17/17 09:00 08/16/17 08:59 07/18/17 10:58 4 MLS/MIN Levothyroxine Sodium (Synthroid Tab) 50 mcg DAILYBB PO 07/17/17 06:00 08/16/17 06:59 07/17/17 05:50 50 MCG Heparin Sodium/ Dextrose 500 ml @ 39 mls/hr [id number] PRN IV 07/16/17 22:30 08/15/17 22:29 07/18/17 10:14 39 MLS/HR Lorazepam (Ativan Tab) 0.5 mg Q8 PRN PO 07/17/17 11:15 08/16/17 11:14 07/17/17 11:57 0.5 MG Atorvastatin Calcium (Lipitor Tab) 40 mg QAM PO 07/18/17 09:00 08/17/17 08:59 07/18/17 07:35 40 MG Dobutamine HCl 250 ml @ 0 mls/hr Q0M IV 07/18/17 09:00 08/17/17 08:59 07/18/17 10:13 8.7 MLS/HR Carvedilol (Coreg Tab) 3.125 mg BID PO 07/18/17 21:00 08/17/17 20:59 Objective Vital Signs Date Time Temp Pulse Resp B/P (MAP) Pulse Ox O2 Delivery O2 Flow Rate FiO2 07/18/17 12:00 Room Air 07/18/17 11:34 87 111/69 (83) 07/18/17 11:09 36.3 80 18 92/66 (75) 97 2.0 07/18/17 08:00 Room Air 07/18/17 07:37 36.6 72 20 117/79 (92) 98 2.0 07/18/17 04:00 Room Air 07/18/17 03:28 36.7 82 18 111/77 (88) 97 Nasal Cannula 2.0 07/17/17 23:59 Room Air 07/17/17 23:20 36.6 83 18 106/73 (84) 95 Room Air 07/17/17 21:56 87 20 109/72 (84) 93 Room Air 07/17/17 21:13 88 106/73 (84) 95 Room Air 07/17/17 20:00 Room Air 07/17/17 19:15 36.3 89 19 99/62 (74) 97 Room Air 07/17/17 16:33 36.6 84 20 102/69 (80) 98 Room Air 07/17/17 16:19 86 107/73 (84) 98 Room Air 07/17/17 16:00 96 Room Air Physical Exam General Appearance: WD/WN, no apparent distress Eyes: normal inspection, EOMI, sclerae normal ENT: normal ENT inspection, hearing grossly normal, pharynx normal Neck: supple, no adenopathy, trachea midline, + JVD Respiratory/Chest: chest non-tender, lungs clear, normal breath sounds, no respiratory distress, no accessory muscle use Cardiovascular: regular rate, rhythm, no gallop, no JVD, no murmur Abdomen: normal bowel sounds, non tender, soft, no organomegaly Extremities: normal range of motion, non-tender, normal inspection, no calf tenderness, pelvis stable, + pedal edema (pitting to the knees bilaterally) Neurologic/Psychiatric: 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 nml as tested, no motor/sensory deficits, alert, normal mood/affect, oriented x 3 Skin: warm/dry, no rash, + pertinent finding (venous stasis changes bilaterally ) Lymphatic: no adenopathy Laboratory Results Last 24 Hours Test 07/17/17 16:54 07/17/17 22:32 07/18/17 01:04 07/18/17 07:00 Troponin I 0.256 ng/ml 0.230 ng/ml Bedside Glucose 100 mg/dl White Blood Count 4.65 K/uL Red Blood Count 4.54 M/uL Hemoglobin 13.6 g/dL Hematocrit 41.6 % Mean Corpuscular Volume 91.6 fL Mean Corpuscular Hemoglobin 30.0 pg Mean Corpuscular Hemoglobin Concent 32.7 g/dl Platelet Count 380 K/uL Mean Platelet Volume 9.8 fL Neutrophils (%) (Auto) 62.8 % Lymphocytes (%) (Auto) 21.9 % Monocytes (%) (Auto) 11.2 % Eosinophils (%) (Auto) 2.4 % Basophils (%) (Auto) 1.5 % Neutrophils # (Auto) 2.92 K/uL Lymphocytes # (Auto) 1.02 K/uL Monocytes # (Auto) 0.52 K/uL Eosinophils # (Auto) 0.11 K/uL Basophils # (Auto) 0.07 K/uL RDW Standard Deviation 48.9 fL RDW Coefficient of Variation 14.5 % Immature Granulocyte % (Auto) 0.2 % Immature Granulocyte # (Auto) 0.01 K/uL Activated Partial Thromboplast Time 46.2 SECONDS Partial Thromboplastin Ratio 1.8 Sodium Level 140 mmol/L Potassium Level 3.9 mmol/L Chloride Level 107 mmol/L Carbon Dioxide Level 23 mmol/L Anion Gap 11.0 mmol/L Blood Urea Nitrogen 37 mg/dl Creatinine 1.76 mg/dl Est Creatinine Clear Calc Drug Dose 61.5 ml/min Estimated GFR () 47.7 Estimated GFR (Non- 41.1 BUN/Creatinine Ratio 20.9 Random Glucose 97 mg/dl Calcium Level 9.2 mg/dl Magnesium Level 2.1 mg/dl Test 07/18/17 13:50 Sodium Level 139 mmol/L Potassium Level 3.4 mmol/L Chloride Level 104 mmol/L Carbon Dioxide Level 29 mmol/L Anion Gap 6.0 mmol/L Blood Urea Nitrogen 37 mg/dl Creatinine 1.87 mg/dl Est Creatinine Clear Calc Drug Dose 57.8 ml/min Estimated GFR () 44.3 Estimated GFR (Non- 38.2 BUN/Creatinine Ratio 19.8 Random Glucose 96 mg/dl Calcium Level 8.9 mg/dl Assessment and Plan Pt is a 62 yo male with a h/o borderline HTN, GERD, who presents with progressively worsening SOB, leg swelling, and fatigue for about 2 weeks. He was found to be in florid acute CHF and had a positive troponin. - Acute combined systolic and diastolic CHF-new onset unclear etiology, need to rule out coronary artery disease cannot have cath today due to Cr of 1.7, will reassess tomorrow would like to see better diuresis, adding Diuril and Dobutamine, goal is negative 1000cc a day EF is 15-20%, global LV dysfunction metoprolol 12.5mg TID, add LIBIA once Cr stabilizes - chest pain, Elevated troponin: could be demand ischemia, although he did have some chest pressure while hospitalized continue aspirin 81mg daily, heparin gtt, Lipitor CAD will be assess on [facility] V/Q scan indeterminate for PE, doubt PE at this time, covered with heparin gtt for now - OBEY: Cr at 1.4 on admission, now up to 1.7, likely from poor perfusion with cardiomyopathy add dobutamine for increased CO and renal perfusion plan for [facility] once Cr recovers follow UO on Lasix and Diuril - Hypothyroidism: TSH 11, T3 low at 1.7 started on Synthroid 50mcg, keep that dose for now Anxiety-situational due to acute medical issue -lorazepam prn GERD--stable -continue PPI Proph-heparin gtt Dispo-remain on tele FULL CODE
[2017-07-18] MEDS ORDERED: NURSING VERBAL MED ORDER ONE (15:15)
[2017-07-18] MEDS ORDERED: POTASSIUM CHLORIDE 20 MEQ TABCR PO ONE (15:30)
[2017-07-18] MEDS: CARVEDILOL 3.125 MG TAB PO SCH (20:24)
[2017-07-18 21:19] LABS: PTT PATIENT 73.4 SECONDS (21.0-31.0)
[2017-07-19] VITALS (8 sets, daily range): BP systolic 97–111; BP diastolic 64–72; PULSE 87–92; TEMP 36.3–36.8; O2SAT 93–96
[2017-07-19] MEDS: DOBUTamine / D5W 500 MG IV SCH ×2 (00:37→14:36)
[2017-07-19 03:40] LABS: BASO % 1.1 %; BASO ABS # 0.07 K/uL (0-0.2); EOS % 9.6 %; EOS ABS # 0.62 K/uL (0-0.5); HEMATOCRIT 38.2 % (42-52); HEMOGLOBIN 12.8 g/dL (14.0-18.0); IG# 0.01 K/uL (0.00-0.02); LYMPH % 20.2 %; MEAN CELL VOLUME 89.7 fL (80-100); MEAN CORPUSCULAR HGB CONC 33.5 g/dl (32-36); MEAN PLATELET VOLUME 9.7 fL (7.4-10.4); MONO % 10.9 %; NEUT ABS # 3.75 K/uL (1.4-6.5); PLATELET COUNT 320 K/uL (130-400); RED CELL DISTRIBUTION WIDTH CV 14.2 % (11.5-14.5); RED CELL DISTRIBUTION WIDTH SD 45.9 fL (36.4-46.3); WHITE BLOOD COUNT 6.45 K/uL (4.8-10.8)
[2017-07-19 03:58] LABS: CALCIUM 8.7 mg/dl (8.5-10.1); CREATININE 1.7 mg/dl (0.60-1.40); POTASSIUM 3.5 mmol/L (3.5-5.1)
[2017-07-19 04:05] LABS: PTT PATIENT 64.7 SECONDS (21.0-31.0)
[2017-07-19] MEDS: LEVOTHYROXINE 50 MCG TAB PO SCH (06:08)
--- NOTE | 2017-07-19 08:33 | CARDIOLOGY PROGRESS NOTE ---
DATE: 07/19/2017 TIME: 8:08 a.m. SUBJECTIVE: Mr. Washington feels much better. He was able to walk in the hallway yesterday without oxygen and denied shortness of breath. He denies chest discomfort, syncope, near syncope, palpitations. He is tolerating dobutamine. Dobutamine was increased throughout the day yesterday as his urine output was not significantly improved for a net negative balance. After dobutamine was increased to 5 mcg per kilogram per minute, he started diuresing much more significantly and tolerated it well. OBJECTIVE: VITAL SIGNS: Temperature is 36.5 degrees, heart rate 87 beats per minute, respiration rate 17, blood pressure 111/70 mmHg, oxygen saturation is 95% on room air. I's and O's negative 1.2 liters yesterday. Weight is 113.3 kg. GENERAL: No acute distress. He is alert. NECK: Elevated JVD half way to the mandible sitting with his head elevated at approximately 70 degrees. CARDIAC EXAM: No ventricular heave, regular, normal S1 and S2. There is an audible S3, no murmurs. LUNGS: Clear to auscultation bilaterally without wheezes, rales or rhonchi. ABDOMEN: Soft, nontender, nondistended. Normoactive bowel sounds. EXTREMITIES: 1+ bilateral lower extremity edema. No cyanosis. PSYCHIATRIC: Affect appears appropriate. MEDICATIONS: Include aspirin 81 mg daily, Lipitor 40 mg daily, carvedilol 3.125 mg p.o. b.i.d., dobutamine at 5 mcg per kilogram per minute, Lasix 80 mg IV b.i.d., heparin drip per protocol, Synthroid 50 mcg daily. Telemetry strips reviewed. Sinus rhythm. PVCs. LABORATORY DATA: White blood cell count is 6.45, hemoglobin 12.8, platelets 320. Sodium 140, potassium 3.5, BUN 36, creatinine 1.7 down from 1.87, PTT is 64.7. ASSESSMENT AND PLAN: 1. Acute systolic congestive heart failure: He is diuresing better on higher doses of dobutamine. Continue dobutamine 5 mcg per kilogram per minute. Lasix was increased last evening to 80 mg IV b.i.d. Continue with current dose with a goal net negative balance of 1-2 liters per day as renal function allows. Strict I's and O's, daily weights and low sodium diet. 2. Cardiomyopathy: Ischemic evaluation is tentatively being planned for Saturday07/22/2017 in the morning if renal function continues to improve. There is no urgent indication. He has not had any angina. Continue aspirin, high intensity statin therapy and beta ollie. We discussed Entresto. His is checking with her insurance company to see if this is an affordable option. There is also typically 2 coupons available as well as samples. We will initiate Entresto tomorrow as his renal function hopefully continues to improve. Continue carvedilol at current dose for now. 3. Supraventricular tachycardia: He had what appeared to be atrial tachycardia during his first 24 hours here. Continue beta ollie. 4. Dyslipidemia: Continue high intensity statin therapy. 5. Elevated troponins: They were not diagnostic of myocardial infarction and could be secondary to heart failure, but there is also concern for ischemic heart disease given his severely reduced LV systolic function. Cardiac catheterization is planned for next week if renal function allows. 6. Chest pain: No further chest discomfort. Can continue heparin given concern for ischemic heart disease. 7. Aortic regurgitation: Non-severe. 8. Disposition: Dr. Lassiter will be available over the weekend to assist in his cardiology care. Dr. Anderson was contacted and patient care discussed with him.
[2017-07-19] MEDS ORDERED: FUROSEMIDE INJ 80 MG in SYRINGE 0 ML IV SCH (09:00)
[2017-07-19] MEDS: CARVEDILOL 3.125 MG TAB PO SCH (09:22)
[2017-07-19] MEDS: ATORVASTATIN 40 MG TAB PO SCH (09:22)
[2017-07-19] MEDS: ASPIRIN 81 MG ECTAB PO SCH (09:22)
[2017-07-19 14:25] LABS: CALCIUM 8.9 mg/dl (8.5-10.1); CREATININE 1.65 mg/dl (0.60-1.40); POTASSIUM 3.4 mmol/L (3.5-5.1)
--- NOTE | 2017-07-19 14:34 | Progress Note ---
Subjective Date of Service: Jul 19, 2017. Subjective Pt evaluation today including: conversation w/ patient, physical exam, lab review, conversation w/ creative consultant, review of inpatient medication list Pain: no pain PO Intake: adequate Voiding: no voiding problems diuresing better on Dobutamine and Lasix 80mg BID breathing stable Cr is at 1.7 today d/w Dr. Barnes today, plan for [facility] on Saturday Problem List Medical Problems: (1) CHF (congestive heart failure) Status: Acute (2) Elevated troponin Status: Acute (3) Lumbar compression fracture Status: Acute (4) Peripheral edema Status: Acute Review of Systems Respiratory: + dyspnea on exertion Cardiac: + edema All Other Systems: Reviewed and Negative Medications Current Inpatient Medications Medications (Trade) Dose Ordered Sig/Rosalie Route Start Time Stop Time Status Last Admin Dose Admin Acetaminophen (Tylenol Tab) 650 mg Q4H PRN PO 07/16/17 21:00 08/15/17 20:59 Nitroglycerin (Nitrostat Tab) 0.4 mg UD PRN SL 07/16/17 21:00 08/15/17 20:59 Aspirin (Ecotrin Tab) 81 mg QAM PO 07/17/17 09:00 08/16/17 08:59 07/19/17 09:22 81 MG Ondansetron HCl (Zofran Odt) 8 mg Q6H PRN PO 07/16/17 21:00 08/15/17 20:59 Levothyroxine Sodium (Synthroid Tab) 50 mcg DAILYBB PO 07/17/17 06:00 08/16/17 06:59 07/19/17 06:08 50 MCG Heparin Sodium/ Dextrose 500 ml @ 33 mls/hr [id number] PRN IV 07/16/17 22:30 08/15/17 22:29 07/18/17 21:31 35 MLS/HR Lorazepam (Ativan Tab) 0.5 mg Q8 PRN PO 07/17/17 11:15 08/16/17 11:14 07/17/17 11:57 0.5 MG Atorvastatin Calcium (Lipitor Tab) 40 mg QAM PO 07/18/17 09:00 08/17/17 08:59 07/19/17 09:22 40 MG Dobutamine HCl 250 ml @ 0 mls/hr Q0M IV 07/18/17 09:00 2/10/18 08:59 07/19/17 00:37 17.4 MLS/HR Carvedilol (Coreg Tab) 3.125 mg BID PO 07/18/17 21:00 08/17/17 20:59 07/19/17 09:22 3.125 MG Furosemide 80 mg/ Syringe 8 ml @ 4 mls/min BID17 IV 07/19/17 09:00 08/16/17 08:59 07/19/17 09:23 4 MLS/MIN Sacubitril/ Valsartan (Entresto 24-26 Mg) 1 tab Q12H PO 07/19/17 18:00 08/18/17 17:59 Objective Vital Signs Date Time Temp Pulse Resp B/P (MAP) Pulse Ox O2 Delivery O2 Flow Rate FiO2 07/19/17 11:10 36.3 90 20 105/71 (82) 96 Room Air 07/19/17 08:00 Room Air 07/19/17 07:44 36.6 92 20 97/64 (75) 93 Room Air 07/19/17 04:09 36.5 87 17 111/70 (84) 95 Room Air 07/19/17 04:00 95 Room Air 07/18/17 23:59 Room Air 07/18/17 23:18 36.3 84 18 101/65 (77) 95 Room Air 07/18/17 20:00 98 Room Air 07/18/17 19:50 36.7 86 20 100/68 (79) 98 Room Air 2.0 07/18/17 16:00 Room Air 07/18/17 15:53 36.6 81 19 99/65 (76) 98 Nasal Cannula 2.0 Physical Exam General Appearance: WD/WN, no apparent distress Eyes: normal inspection, EOMI, sclerae normal ENT: normal ENT inspection, hearing grossly normal, pharynx normal Neck: supple, no adenopathy, no JVD, trachea midline Respiratory/Chest: chest non-tender, lungs clear, normal breath sounds, no respiratory distress, no accessory muscle use Cardiovascular: regular rate, rhythm, no gallop, no JVD, no murmur Abdomen: normal bowel sounds, non tender, soft, no organomegaly Extremities: normal range of motion, non-tender, normal inspection, no calf tenderness, normal capillary refill, pelvis stable, + pedal edema Neurologic/Psychiatric: examining chair assembler II-XII nml as tested, no motor/sensory deficits, alert, normal mood/affect, oriented x 3 Skin: + pertinent finding (venous stasis changes) Laboratory Results Last 24 Hours Test 07/18/17 20:47 07/19/17 03:27 07/19/17 13:49 Activated Partial Thromboplast Time 73.4 SECONDS 64.7 SECONDS Partial Thromboplastin Ratio 2.8 2.5 White Blood Count 6.45 K/uL Red Blood Count 4.26 M/uL Hemoglobin 12.8 g/dL Hematocrit 38.2 % Mean Corpuscular Volume 89.7 fL Mean Corpuscular Hemoglobin 30.0 pg Mean Corpuscular Hemoglobin Concent 33.5 g/dl Platelet Count 320 K/uL Mean Platelet Volume 9.7 fL Neutrophils (%) (Auto) 58.0 % Lymphocytes (%) (Auto) 20.2 % Monocytes (%) (Auto) 10.9 % Eosinophils (%) (Auto) 9.6 % Basophils (%) (Auto) 1.1 % Neutrophils # (Auto) 3.75 K/uL Lymphocytes # (Auto) 1.30 K/uL Monocytes # (Auto) 0.70 K/uL Eosinophils # (Auto) 0.62 K/uL Basophils # (Auto) 0.07 K/uL RDW Standard Deviation 45.9 fL RDW Coefficient of Variation 14.2 % Immature Granulocyte % (Auto) 0.2 % Immature Granulocyte # (Auto) 0.01 K/uL Sodium Level 140 mmol/L 139 mmol/L Potassium Level 3.5 mmol/L 3.4 mmol/L Chloride Level 105 mmol/L 102 mmol/L Carbon Dioxide Level 27 mmol/L 32 mmol/L Anion Gap 8.0 mmol/L 5.0 mmol/L Blood Urea Nitrogen 36 mg/dl 30 mg/dl Creatinine 1.70 mg/dl 1.65 mg/dl Est Creatinine Clear Calc Drug Dose 63.6 ml/min 64.7 ml/min Estimated GFR () 49.7 51.5 Estimated GFR (Non- 42.9 44.5 BUN/Creatinine Ratio 21.4 18.3 Random Glucose 97 mg/dl 111 mg/dl Calcium Level 8.7 mg/dl 8.9 mg/dl Assessment and Plan Pt is a 62 yo male with a h/o borderline HTN, GERD, who presents with progressively worsening SOB, leg swelling, and fatigue for about 2 weeks. He was found to be in florid acute CHF and had a positive troponin. - Acute combined systolic and diastolic CHF-new onset unclear etiology, need to rule out coronary artery disease planning on heart cath on Saturday 07/22 as long as Cr improves Dobutamine at 5mcg, Lasix 80mg IV BID for improved diuresis, goal is negative 1-2 liters a day EF is 15-20%, global LV dysfunction metoprolol 12.5mg TID, add LIBIA once Cr stabilizes - chest pain, Elevated troponin: could be demand ischemia, although he did have some chest pressure while hospitalized continue aspirin 81mg daily, heparin gtt, Lipitor CAD will be assess on [facility] V/Q scan indeterminate for PE, doubt PE at this time, covered with heparin gtt for now - OBEY: Cr at 1.4 on admission, now up to 1.7, likely from poor perfusion with cardiomyopathy add dobutamine for increased CO and renal perfusion plan for [facility] once Cr recovers follow UO on Lasix and Diuril - Hypothyroidism: TSH 11, T3 low at 1.7 started on Synthroid 50mcg, keep that dose for now Anxiety-situational due to acute medical issue -lorazepam prn GERD--stable -continue PPI Proph-heparin gtt Dispo-remain on tele FULL CODE here over the weekend for diuresis, follow BMP, plan for [facility] on Saturday
[2017-07-19] MEDS: HEPARIN 25,000 UNIT/500ML D5W 500 ML IV PRN (14:35)
[2017-07-19] MEDS ORDERED: NURSING VERBAL MED ORDER ONE (16:45)
[2017-07-19] MEDS ORDERED: POTASSIUM CHLORIDE 20 MEQ TABCR PO STA (16:47)
[2017-07-19] MEDS: FUROSEMIDE INJ 40 MG in SYRINGE 0 ML IV SCH (17:17)
[2017-07-19] MEDS: CARVEDILOL 6.25 MG TAB PO SCH ×2 (17:54→19:22)
[2017-07-20] VITALS (10 sets, daily range): BP systolic 94–114; BP diastolic 58–77; PULSE 71–98; TEMP 36.3–36.9; O2SAT 94–96
[2017-07-20] MEDS: LEVOTHYROXINE 50 MCG TAB PO SCH (06:11)
[2017-07-20] MEDS: HEPARIN 25,000 UNIT/500ML D5W 500 ML IV PRN ×2 (07:08→22:12)
[2017-07-20] MEDS: FUROSEMIDE INJ 40 MG in SYRINGE 0 ML IV SCH ×2 (07:22→16:30)
[2017-07-20] MEDS: ATORVASTATIN 40 MG TAB PO SCH (07:23)
[2017-07-20] MEDS: ASPIRIN 81 MG ECTAB PO SCH (07:23)
[2017-07-20] MEDS: CARVEDILOL 6.25 MG TAB PO SCH ×2 (07:23→20:48)
[2017-07-20 07:32] LABS: HEMATOCRIT 39.6 % (42-52); MEAN CELL VOLUME 90.8 fL (80-100); MEAN CORPUSCULAR HEMOGLOBIN 29.8 pg (25-34); MEAN CORPUSCULAR HGB CONC 32.8 g/dl (32-36); MEAN PLATELET VOLUME 9.7 fL (7.4-10.4); PLATELET COUNT 342 K/uL (130-400); RED CELL DISTRIBUTION WIDTH CV 14.2 % (11.5-14.5); WHITE BLOOD COUNT 5.07 K/uL (4.8-10.8)
[2017-07-20 07:51] LABS: PTT PATIENT 63.4 SECONDS (21.0-31.0)
[2017-07-20 08:09] LABS: CALCIUM 8.9 mg/dl (8.5-10.1); CREATININE 1.23 mg/dl (0.60-1.40); POTASSIUM 3.3 mmol/L (3.5-5.1)
--- NOTE | 2017-07-20 13:51 | CARDIOLOGY PROGRESS NOTE ---
DATE: 07/20/2017 SUBJECTIVE: Mr. Washington is resting comfortably in bed without complaints of chest pain or dyspnea. He has been ambulatory without difficulty. He is anxious for his cardiac catheterization to be performed on Saturday. OBJECTIVE: VITAL SIGNS: Blood pressure is 100/60 with a regular pulse of 70. Respiratory rate is 18. The patient is afebrile at 36.8 degrees Celsius. Saturations 96% on room air. NECK: Supple with full carotid upstrokes. There are no carotid bruits. Jugular venous pressure is approximately 10 cm of water at 45 degrees. LUNGS: Clear without rales, rhonchi, or wheezes. ABDOMEN: Soft and nontender without bruits. EXTREMITIES: Reveal intact radial artery pulses bilaterally. 1+ pretibial edema is noted. MEDICATIONS: 1. Dobutamine drip. 2. Carvedilol 6.25 mg b.i.d. 3. Entresto 24-26 1 tablet b.i.d. 4. Furosemide 40 mg IV b.i.d. 5. Lipitor 40 mg at bedtime. 6. Aspirin 81 mg per day. 7. Synthroid 0.05 mg daily. 8. Heparin drip. DATA: CBC notes a hemoglobin of 13.0, hematocrit 39.6, white count 5.0, platelet count 342,000. Electrolytes note a sodium of 142, potassium 3.3, chloride 105, bicarb 28, BUN 23, creatinine 1.23, glucose 94. PTT is 63.4. monitoring manager noted an 18-beat run of an SVT yesterday. This prompted a decrease in the dose of his dobutamine. IMPRESSION AND PLAN: 1. Acute systolic congestive heart failure -- the patient continues to diurese with the use of intravenous dobutamine at 2.5 mcg per kilogram per minute and intravenous Lasix. His renal function continues to improve. Continue current medical regimen. 2. Ischemic cardiomyopathy -- we will hopefully evaluate for cardiac catheterization on Saturday morning. Continue medical management for now. 3. Supraventricular tachycardia -- as above, had an 18-beat run yesterday afternoon, prompting decreasing his dose of dobutamine. No recurrence since that time. 4. Hypercholesterolemia -- continue statin.
--- NOTE | 2017-07-20 15:13 | Progress Note ---
Subjective Date of Service: Jul 20, 2017. Subjective Pt evaluation today including: conversation w/ patient, conversation w/ family , physical exam, lab review, conversation w/ health consultant, review of inpatient medication list Pain: no pain PO Intake: adequate Voiding: no voiding problems patient doing quite well, diuresing well, breathing well, no chest pain, eating more reviewed labs, Cr down to 1.3, diuresed 3.5 liters d/w Dr. Lassiter Problem List Medical Problems: (1) CHF (congestive heart failure) Status: Acute (2) Elevated troponin Status: Acute (3) Lumbar compression fracture Status: Acute (4) Peripheral edema Status: Acute Review of Systems Respiratory: + dyspnea on exertion Cardiac: + edema All Other Systems: Reviewed and Negative Medications Current Inpatient Medications Medications (Trade) Dose Ordered Sig/Rosalie Route Start Time Stop Time Status Last Admin Dose Admin Acetaminophen (Tylenol Tab) 650 mg Q4H PRN PO 07/16/17 21:00 08/15/17 20:59 Nitroglycerin (Nitrostat Tab) 0.4 mg UD PRN SL 07/16/17 21:00 08/15/17 20:59 Aspirin (Ecotrin Tab) 81 mg QAM PO 07/17/17 09:00 08/16/17 08:59 07/20/17 07:23 81 MG Ondansetron HCl (Zofran Odt) 8 mg Q6H PRN PO 07/16/17 21:00 08/15/17 20:59 Levothyroxine Sodium (Synthroid Tab) 50 mcg DAILYBB PO 07/17/17 06:00 08/16/17 06:59 07/20/17 06:11 50 MCG Heparin Sodium/ Dextrose 500 ml @ 33 mls/hr [id number] PRN IV 07/16/17 22:30 08/15/17 22:29 07/20/17 07:08 33 MLS/HR Lorazepam (Ativan Tab) 0.5 mg Q8 PRN PO 07/17/17 11:15 08/16/17 11:14 07/17/17 11:57 0.5 MG Atorvastatin Calcium (Lipitor Tab) 40 mg QAM PO 07/18/17 09:00 08/17/17 08:59 07/20/17 07:23 40 MG Dobutamine HCl 250 ml @ 0 mls/hr Q0M IV 07/18/17 09:00 08/17/17 08:59 07/19/17 14:36 17.4 MLS/HR Sacubitril/ Valsartan (Entresto 24-26 Mg) 1 tab Q12H PO 07/19/17 18:00 08/18/17 17:59 Future hold Furosemide 40 mg/ Syringe 4 ml @ 4 mls/min BID17 IV 07/19/17 17:00 08/16/17 08:59 07/20/17 07:22 4 MLS/MIN Carvedilol (Coreg Tab) 6.25 mg BID PO 07/19/17 17:30 08/18/17 17:29 07/20/17 07:23 6.25 MG Objective Vital Signs Date Time Temp Pulse Resp B/P (MAP) Pulse Ox O2 Delivery O2 Flow Rate FiO2 07/20/17 12:10 36.8 71 19 97/58 (71) 96 Room Air 07/20/17 12:06 96 Room Air 07/20/17 08:00 96 Room Air 07/20/17 07:49 36.5 86 20 114/77 (89) 96 Room Air 07/20/17 04:00 96 Room Air 07/20/17 03:15 36.8 88 20 114/77 (89) 94 Room Air 07/20/17 00:00 95 Room Air 07/19/17 23:17 36.7 91 20 106/71 (83) 93 Room Air 07/19/17 20:00 95 Room Air 07/19/17 19:37 36.7 17 101/72 (82) 95 Room Air 07/19/17 16:00 Room Air 07/19/17 15:20 36.8 91 18 100/68 (79) 95 Room Air Physical Exam General Appearance: WD/WN, no apparent distress Eyes: normal inspection, EOMI, sclerae normal ENT: normal ENT inspection, hearing grossly normal, pharynx normal Neck: supple, no adenopathy, no JVD, trachea midline Respiratory/Chest: chest non-tender, lungs clear, normal breath sounds, no respiratory distress, no accessory muscle use Cardiovascular: regular rate, rhythm, no gallop, no JVD, no murmur Abdomen: normal bowel sounds, non tender, soft, no organomegaly Extremities: normal range of motion, non-tender, normal inspection, no calf tenderness, pelvis stable, + pedal edema Neurologic/Psychiatric: acct exec II-XII nml as tested, no motor/sensory deficits, alert, normal mood/affect, oriented x 3 Skin: normal color, warm/dry, no rash Laboratory Results Last 24 Hours Test 07/20/17 07:10 White Blood Count 5.07 K/uL Red Blood Count 4.36 M/uL Hemoglobin 13.0 g/dL Hematocrit 39.6 % Mean Corpuscular Volume 90.8 fL Mean Corpuscular Hemoglobin 29.8 pg Mean Corpuscular Hemoglobin Concent 32.8 g/dl RDW Standard Deviation 47.0 fL RDW Coefficient of Variation 14.2 % Platelet Count 342 K/uL Mean Platelet Volume 9.7 fL Activated Partial Thromboplast Time 63.4 SECONDS Partial Thromboplastin Ratio 2.4 Sodium Level 142 mmol/L Potassium Level 3.3 mmol/L Chloride Level 105 mmol/L Carbon Dioxide Level 28 mmol/L Anion Gap 9.0 mmol/L Blood Urea Nitrogen 23 mg/dl Creatinine 1.23 mg/dl Est Creatinine Clear Calc Drug Dose 85.0 ml/min Estimated GFR () 73.5 Estimated GFR (Non- 63.4 BUN/Creatinine Ratio 18.9 Random Glucose 94 mg/dl Calcium Level 8.9 mg/dl Assessment and Plan Pt is a 62 yo male with a h/o borderline HTN, GERD, who presents with progressively worsening SOB, leg swelling, and fatigue for about 2 weeks. He was found to be in florid acute CHF and had a positive troponin. - Acute combined systolic and diastolic CHF-new onset unclear etiology, need to rule out coronary artery disease planning on heart cath on Saturday 07/22 as long as Cr improves, 1.3 today Dobutamine at 2.5mcg, Lasix 80mg IV BID for improved diuresis, goal is negative 1-2 liters a day, yesterday negative 3.5 liters EF is 15-20%, global LV dysfunction metoprolol 12.5mg TID, add LIBIA once Cr stabilizes - chest pain, Elevated troponin: could be demand ischemia, although he did have some chest pressure while hospitalized continue aspirin 81mg daily, heparin gtt, Lipitor CAD will be assess on [facility] V/Q scan indeterminate for PE, doubt PE at this time, covered with heparin gtt for now - OBEY: Cr at 1.4 on admission, was up to 1.7, likely from poor perfusion with cardiomyopathy Cr improved to 1.3 today, excellent UO added dobutamine for increased CO and renal perfusion plan for LHC once Cr recovers follow UO on Lasix and Diuril - Hypothyroidism: TSH 11, T3 low at 1.7 started on Synthroid 50mcg, keep that dose for now - SVT: due to dobutamine, no further episodes since dose decreased to 2.5mcg Anxiety-situational due to acute medical issue -lorazepam prn GERD--stable -continue PPI Proph-heparin gtt Dispo-remain on tele FULL CODE here over the weekend for diuresis, follow BMP, plan for LHC on Saturday
[2017-07-20] MEDS: SACUBITRIL-VALSARTAN 24-26 MG TAB PO SCH (17:03)
[2017-07-20] MEDS: DOBUTamine / D5W 500 MG IV SCH (23:21)
[2017-07-21] VITALS (7 sets, daily range): BP systolic 90–121; BP diastolic 61–80; PULSE 79–94; TEMP 36.3–36.8; O2SAT 94–96
[2017-07-21] MEDS: LEVOTHYROXINE 50 MCG TAB PO SCH (05:42)
[2017-07-21] MEDS: SACUBITRIL-VALSARTAN 24-26 MG TAB PO SCH ×2 (05:42→16:22)
[2017-07-21 07:32] LABS: CALCIUM 8.7 mg/dl (8.5-10.1); CREATININE 1.09 mg/dl (0.60-1.40); POTASSIUM 3.2 mmol/L (3.5-5.1)
[2017-07-21] MEDS: ATORVASTATIN 40 MG TAB PO SCH (07:41)
[2017-07-21] MEDS: CARVEDILOL 6.25 MG TAB PO SCH ×2 (07:41→20:13)
[2017-07-21] MEDS: ASPIRIN 81 MG ECTAB PO SCH (07:41)
[2017-07-21] MEDS: FUROSEMIDE INJ 40 MG in SYRINGE 0 ML IV SCH ×2 (07:42→16:21)
[2017-07-21 07:51] LABS: PTT PATIENT 69.2 SECONDS (21.0-31.0)
[2017-07-21] MEDS: POTASSIUM CHLORIDE 20 MEQ TABCR PO SCH ×3 (09:28→20:13)
--- NOTE | 2017-07-21 10:34 | Progress Note ---
Subjective Date of Service: Jul 21, 2017. Subjective Pt evaluation today including: conversation w/ patient, physical exam, lab review, conversation w/ sap business intelligence consultant, review of inpatient medication list Pain: no pain PO Intake: adequate Voiding: no voiding problems continues to do very well, diuresing, vitals stable, eating well reviewed labs, K low at 3.2, Cr improved to 1.0 negative 7700 for admission d/w Dr. Lassiter, no change to regimen today, plan for [facility] tomorrow Problem List Medical Problems: (1) CHF (congestive heart failure) Status: Acute (2) Elevated troponin Status: Acute (3) Lumbar compression fracture Status: Acute (4) Peripheral edema Status: Acute Review of Systems Respiratory: + dyspnea on exertion Cardiac: + edema All Other Systems: Reviewed and Negative Medications Current Inpatient Medications Medications (Trade) Dose Ordered Sig/Rosalie Route Start Time Stop Time Status Last Admin Dose Admin Acetaminophen (Tylenol Tab) 650 mg Q4H PRN PO 07/16/17 21:00 08/15/17 20:59 Nitroglycerin (Nitrostat Tab) 0.4 mg UD PRN SL 07/16/17 21:00 08/15/17 20:59 Aspirin (Ecotrin Tab) 81 mg QAM PO 07/17/17 09:00 08/16/17 08:59 07/21/17 07:41 81 MG Ondansetron HCl (Zofran Odt) 8 mg Q6H PRN PO 07/16/17 21:00 08/15/17 20:59 Levothyroxine Sodium (Synthroid Tab) 50 mcg DAILYBB PO 07/17/17 06:00 08/16/17 06:59 07/21/17 05:42 50 MCG Heparin Sodium/ Dextrose 500 ml @ 33 mls/hr [id number] PRN IV 07/16/17 22:30 08/15/17 22:29 07/20/17 22:12 33 MLS/HR Lorazepam (Ativan Tab) 0.5 mg Q8 PRN PO 07/17/17 11:15 08/16/17 11:14 07/17/17 11:57 0.5 MG Atorvastatin Calcium (Lipitor Tab) 40 mg QAM PO 07/18/17 09:00 08/17/17 08:59 07/21/17 07:41 40 MG Dobutamine HCl 250 ml @ 0 mls/hr Q0M IV 07/18/17 09:00 08/17/17 08:59 07/20/17 23:21 8.1 MLS/HR Sacubitril/ Valsartan (Entresto 24-26 Mg) 1 tab Q12H PO 07/19/17 18:00 08/18/17 17:59 Future hold 07/21/17 05:42 1 TAB Furosemide 40 mg/ Syringe 4 ml @ 4 mls/min BID17 IV 07/19/17 17:00 08/16/17 08:59 07/21/17 07:42 4 MLS/MIN Carvedilol (Coreg Tab) 6.25 mg BID PO 07/19/17 17:30 08/18/17 17:29 07/21/17 07:41 6.25 MG Potassium Chloride (Klor-Con Tab) 20 meq TID PO 07/21/17 09:00 08/20/17 08:59 07/21/17 09:28 20 MEQ Objective Vital Signs Date Time Temp Pulse Resp B/P (MAP) Pulse Ox O2 Delivery O2 Flow Rate FiO2 07/21/17 08:00 Room Air 07/21/17 07:23 36.4 88 20 110/74 (86) 95 Room Air 07/21/17 04:00 Room Air 07/21/17 03:14 36.4 90 18 100/64 (76) 95 Room Air 07/21/17 00:00 Room Air 07/20/17 23:35 36.3 89 16 101/64 (76) 94 Room Air 07/20/17 20:00 Room Air 07/20/17 19:54 36.9 89 18 104/66 (79) 94 Room Air 07/20/17 16:00 Room Air 07/20/17 15:24 36.8 98 18 96/63 (74) 96 Room Air 07/20/17 12:10 36.8 71 19 97/58 (71) 96 Room Air 07/20/17 12:06 96 Room Air Physical Exam General Appearance: WD/WN, no apparent distress Eyes: normal inspection, EOMI, sclerae normal ENT: normal ENT inspection, hearing grossly normal, pharynx normal Neck: supple, no adenopathy, no JVD, trachea midline Respiratory/Chest: chest non-tender, lungs clear, normal breath sounds, no respiratory distress, no accessory muscle use Cardiovascular: regular rate, rhythm, no gallop, no JVD, no murmur Abdomen: normal bowel sounds, non tender, soft, no organomegaly Extremities: normal range of motion, non-tender, normal inspection, no calf tenderness, pelvis stable, + pedal edema Neurologic/Psychiatric: tool honing machine set up operator II-XII nml as tested, no motor/sensory deficits, alert, normal mood/affect, oriented x 3 Skin: normal color, warm/dry, no rash Laboratory Results Last 24 Hours Test 07/21/17 06:41 Activated Partial Thromboplast Time 69.2 SECONDS Partial Thromboplastin Ratio 2.7 Sodium Level 142 mmol/L Potassium Level 3.2 mmol/L Chloride Level 104 mmol/L Carbon Dioxide Level 29 mmol/L Anion Gap 8.0 mmol/L Blood Urea Nitrogen 18 mg/dl Creatinine 1.09 mg/dl Est Creatinine Clear Calc Drug Dose 95.7 ml/min Estimated GFR () 85.1 Estimated GFR (Non- 73.4 BUN/Creatinine Ratio 16.9 Random Glucose 97 mg/dl Calcium Level 8.7 mg/dl Assessment and Plan Pt is a 62 yo male with a h/o borderline HTN, GERD, who presents with progressively worsening SOB, leg swelling, and fatigue for about 2 weeks. He was found to be in florid acute CHF and had a positive troponin. - Acute combined systolic and diastolic CHF-new onset unclear etiology, need to rule out coronary artery disease planning on heart cath on Saturday 07/22, Cr is 1.0 today Dobutamine at 2.5mcg, Lasix 80mg IV BID for improved diuresis, thus far he is -7700cc for admission EF is 15-20%, global LV dysfunction metoprolol 12.5mg TID, add LBIIA once Cr stabilizes per cardiology - chest pain, Elevated troponin: could be demand ischemia, although he did have some chest pressure while hospitalized continue aspirin 81mg daily, heparin gtt, Lipitor CAD will be assess on [facility] V/Q scan indeterminate for PE, doubt PE at this time, covered with heparin gtt for now - OBEY: Cr at 1.4 on admission, was up to 1.7, likely from poor perfusion with cardiomyopathy Cr improved to 1.0 today, excellent UO added dobutamine for increased CO and renal perfusion - Hypokalemia: due to Lasix will add KCl 20mEq TID, follow K - Hypothyroidism: TSH 11, T3 low at 1.7 started on Synthroid 50mcg, keep that dose for now repeat TSH in 6 weeks as outpatient - SVT: due to dobutamine, no further episodes since dose decreased to 2.5mcg Anxiety-situational due to acute medical issue -lorazepam prn GERD--stable -continue PPI Proph-heparin gtt Dispo-remain on tele FULL CODE plan for [facility] tomorrow with Dr. Elizabeth
--- NOTE | 2017-07-21 13:52 | CARDIOLOGY PROGRESS NOTE ---
DATE: 07/21/2017 SUBJECTIVE: Mr. Washington is resting comfortably in bed without complaints of chest pain or dyspnea. He has been ambulatory without difficulty. He understands he will have a cardiac catheterization performed tomorrow morning. OBJECTIVE: VITAL SIGNS: Blood pressure is 100/60 with a regular pulse of 82. Respiratory rate is 18 and the patient is afebrile at 36.3 degrees Celsius. Saturations 96% on room air. NECK: Supple with full carotid upstrokes. There are no carotid bruits. Jugular venous pressure is 8 cm of water at 45 degrees. LUNGS: Clear without rales, rhonchi, or wheezes. ABDOMEN: Soft and nontender without bruits. EXTREMITIES: Reveal intact radial artery pulses bilaterally. 1+ pretibial edema was noted. MEDICATIONS: 1. Dobutamine drip. 2. Carvedilol 6.25 mg b.i.d. 3. Entresto 24-26, 1 tablet b.i.d. 4. Furosemide 40 mg IV b.i.d. 5. Lipitor 40 mg at bedtime. 6. Aspirin 81 mg per day. 7. Synthroid 0.05 mg daily. 8. Heparin drip. DATA: Electrolytes note a sodium of 142, potassium 3.2, chloride 104, bicarbonate 29, BUN 18, creatinine 0.9, glucose 97. PTT is 69.2. digital designer notes sinus rhythm. No further SVT. IMPRESSION AND PLAN: 1. Acute on chronic systolic congestive heart failure -- patient continues diuresis with intravenous Lasix and dobutamine. Renal function continues to improve. 2. Ischemic cardiomyopathy -- continue medical management for now. Cardiac catheterization tomorrow morning to determine if an intervention is necessary. 3. Paroxysmal supraventricular tachycardia - none further. 4. Hypercholesterolemia -- continue statin. MTDD
[2017-07-21] MEDS: HEPARIN 25,000 UNIT/500ML D5W 500 ML IV PRN (14:36)
[2017-07-22] VITALS (17 sets, daily range): BP systolic 89–131; BP diastolic 55–86; PULSE 82–103; TEMP 36.4–36.7; O2SAT 92–97
[2017-07-22] MEDS: LEVOTHYROXINE 50 MCG TAB PO SCH (05:54)
[2017-07-22] MEDS: SACUBITRIL-VALSARTAN 24-26 MG TAB PO SCH ×2 (05:54→17:30)
[2017-07-22 06:50] LABS: HEMATOCRIT 44.6 % (42-52); HEMOGLOBIN 14.6 g/dL (14.0-18.0); MEAN CORPUSCULAR HEMOGLOBIN 29.8 pg (25-34); MEAN CORPUSCULAR HGB CONC 32.7 g/dl (32-36); MEAN PLATELET VOLUME 9.6 fL (7.4-10.4); PLATELET COUNT 357 K/uL (130-400); RED CELL DISTRIBUTION WIDTH CV 14.1 % (11.5-14.5); RED CELL DISTRIBUTION WIDTH SD 46.9 fL (36.4-46.3); WHITE BLOOD COUNT 5.61 K/uL (4.8-10.8)
[2017-07-22 07:14] LABS: PTT PATIENT 71.3 SECONDS (21.0-31.0)
[2017-07-22 07:26] LABS: CALCIUM 9.3 mg/dl (8.5-10.1); CREATININE 0.94 mg/dl (0.60-1.40); POTASSIUM 3.4 mmol/L (3.5-5.1)
[2017-07-22] MEDS ORDERED: HEPARIN SOD (PORCINE) 1000 UNIT/ML 10 ML VIAL ONE (07:33)
[2017-07-22] MEDS ORDERED: MIDAZOLAM HCL 1 MG/ML 2ML VIAL ONE (07:33)
[2017-07-22] MEDS ORDERED: FENTANYL CITRATE INJ 50 MCG/1 ML 2 ML VIAL ONE (07:33)
[2017-07-22] MEDS ORDERED: NITROGLYCERIN/D5W 100MCG/ML 20ML SYR ONE (07:34)
[2017-07-22] MEDS ORDERED: NiCARDipine HCL INJ 2.5 MG/ML 10 ML AMP ONE (07:34)
--- NOTE | 2017-07-22 07:41 | Pre Sedation Assessment ---
Pre Sedation Assessment General Date of Sedation: Jul 22, 2017. Vital Signs Past 12 Hours Date Time Temp Pulse Resp B/P (MAP) Pulse Ox O2 Delivery O2 Flow Rate FiO2 07/22/17 04:09 Room Air 07/22/17 03:35 36.6 96 18 106/68 (81) 93 Room Air 07/22/17 00:15 Room Air 07/21/17 23:40 36.6 94 17 102/64 (77) 94 Room Air 07/21/17 20:21 Room Air Review Cardiovascular: regular rate, rhythm, no murmur Lungs: lungs clear Pre-Sedation Airway Assessment Smoking Status: Never Smoker Hx of Sleep Apnea: No Hx of difficult intubation: No Short Thick Neck: No Thyro-mental Distance: > 3 Finger Breadths Mallampati Classification: Class I ASA Classification: Class IV NPO Status Date of Last Intake of Fluids: Jul 21, 2017 Time of Last Intake of Fluids: 21:00 Date of Last Intake of Solids: Jul 21, 2017 Time of Last Intake of Solids: 21:00 Procedure Planning Contraindications for Sedation: None Current Medications Reviewed: Yes Notes The planned sedation has been discussed with the patient. Informed Consent was obtained. I have identified the patient, determined the appropriateness of sedation and have assessed the patient immediately prior to the procedure. All medicine(s) and interventions are by my order.
--- NOTE | 2017-07-22 09:25 | Consultant Recommendations ---
Long Winder Tender Recommendations Date of Service Jul 22, 2017. Long Winder Tender Recommendations ACTIVITY RECOMMENDATIONS: Excess manipulation of the wrist should be avoided for the next 24-48 hours. * No lifting over 2 pounds (approximately a 1/2 gallon of milk) with the utilized arm for 24 hours. * No strenuous activity such as bowling or tennis for 3 days. * Keep the site of the procedure covered with a bandage for 24 hours. *You may shower the day after the procedure. Do not take a tub bath or submerge the puncture site in water for the next 3 days. *Do not operate any motorized equipment for 3 days. SPECIAL CARE INSTRUCTIONS: The site may be slightly bruised and sore following your procedure. Should any of the following occur, contact the Dr. who performed your procedure. 1. Redness/inflammation, swelling, chills, or fever, or colored drainage at procedure site within 3-7 days after your procedure. 2. Coldness, discoloration, ongoing numbness, severe pain, or swelling. Expect mild tingling of hand and tenderness at the puncture site for up to three days. If this persists beyond three days, or other symptoms develop, notify the Dr. who performed your procedure. BLEEDING: If the procedure site on your wrist begins to bleed, do not panic 1. Place 1 or 2 fingers firmly just slightly above the insertion site to stop the bleeding. You may be able to feel your pulse as you hold pressure. 2. Lift your finger after 5 minutes to see if the bleeding has stopped. 3. Once the bleeding has stopped, gently wipe the wrist area clean with a bandage. * If the bleeding from your wrist does not stop after 10 minutes, or if there is a large amount of bleeding or spurting, call 911 (do not drive yourself to the hospital). SKIN IRRITATION: * You may experience some redness and/or swelling in the area where radiation was administered. If any skin irritation occurs, please contact your family physician. FOLLOW UP VISIT: Keep any scheduled doctor appointments.
--- NOTE | 2017-07-22 09:37 | Cardiac Catheterization ---
Procedure Note Procedure Date Jul 22, 2017. Pre-Procedure Diagnosis CHF, Cardiomyopathy AUC Score 7 Post-Procedure Diagnosis Mild CAD, Elevated Intracardiac Pressures Procedure(s) Performed Coronary Angiography, Left Heart Cath, Right Heart Cath Graphic Design Teacher Dr. Elizabeth Recreation Programmer(s) Mau Estimated Blood Loss None (< 30 ml) Medication(s) Fentanyl, Heparin, Nicardipine, Versed, Lidocaine 1% Summary of Findings Coronary angiography: 1. Left main coronary artery: Ostial LM CA 10% smooth narrowing. Distal LM CA 20% narrowing. 2. Left anterior descending: The LAD is a large caliber vessel that extends to the apex. It gives rise to a very large caliber D1 with large lateral branch. No significant CAD noted within the LAD system. 3. Circumflex: The circumflex is a large caliber vessel. It gives rise to a medium caliber OM1, small caliber OM2, and medium caliber OM3. No significant CAD noted within the circumflex system. 4. Right coronary artery: The RCA is very large in caliber and a dominant vessel. There are large caliber posterior lateral branch and PDA vessels. No significant CAD noted within the RCA system. Left heart catheterization: 1. Left ventriculography was not performed. 2. The peak to peak gradient across the aortic valve was approximately 4 mmHg. No significant aortic stenosis. 3. Mildly elevated LVEDP; 15mmHg. Right heart catheterization: 1. Pulmonary capillary wedge pressure V-wave 18 with a mean of 13mmHg. 2. Mild pulmonary hypertension 40/15 with a mean of 23mmHg. 3. Right ventricular pressure 40/0 with EDP of 7mmHg. 4. Normal RA pressure. A-wave 7; V-wave 5; mean 4mmHg. 5. Cardiac output via thermodilution 6.5 L/min with a cardiac index of 2.8 L/min /m2. 6. PVR 1.5 Wood units. Sedation start time: 7:53 a.m. Sedation end time: 8:46 a.m. Procedural notes: 1. Right heart catheterization was performed via the right femoral vein under ultrasound guidance without known complication. 2. Left heart catheterization was performed via the right radial artery without known complication. Ultrasound guidance: 1. Under ultrasound guidance, the right femoral vein was cannulated without known complication. Impression: 1. Nonischemic cardiomyopathy. 2. Mild nonobstructive CAD. 3. Slightly elevated left sided filling pressures. 4. No significant aortic stenosis. 5. Normal cardiac output. Plan: 1. Optimize medical therapy. 2. Alcohol cessation. 2. Hemodynamics Rest Ao: 107/66 Final Ao: 102/63 LV: 112/5/15 Recommendations Medical therapy and/or Counseling Specimens None Radiation Exposure (mGy) 1345 mGy. Fluoro time 10.8 min Contrast (mls) 75 ml visipaque Procedural Complication(s) None Disposition PCU ACC Data Cardiac Status Clinical evaluation leading to the procedure CAD Presntation: No Sxs, no angina Anginal Classification: No symptoms Heart Failure: Yes, NYHA Class: CCS IV Cardiogenic Shock w/in 24Hrs: No Cardiac Arrest w/in 24Hrs: No Imaging studies past 6 months: Yes (echo) Stress studies past 6 months: No Standard Exercise Stress Test: No Stress Echocardiogram: No Stress Testing w/SPECT MPI: No Cardiac CTA: No Coronary Anatomy Dominant: Right Left Main (% Stenosis): Ostial (10%), Distal (20%) LAD (% Stenosis): Normal D1 (% Stenosis): Normal Circumflex (% Stenosis): Normal OM1 (% Stenosis): Normal OM2 (% Stenosis): Normal OM3 (% Stenosis): Normal RCA (% Stenosis): Normal R PDA (% Stenosis): Normal R PL1 (% Stenosis): Normal Left Ventricular Angiography EF (%): n/a Diagnostic Physician's Name: Rodrigue Elizabeth MD Status: Elective Closure Device Percutaneous Entry Location: Radial Closure Device: Radial Band Recommendations: Medical therapy and/or Counseling
[2017-07-22] MEDS: ASPIRIN 81 MG ECTAB PO SCH (10:13)
[2017-07-22] MEDS: ATORVASTATIN 40 MG TAB PO SCH (10:13)
[2017-07-22] MEDS: POTASSIUM CHLORIDE 20 MEQ TABCR PO SCH ×3 (10:14→20:22)
[2017-07-22] MEDS: CARVEDILOL 6.25 MG TAB PO SCH ×2 (10:14→20:21)
[2017-07-22] MEDS ORDERED: NURSING VERBAL MED ORDER ONE (10:45)
--- NOTE | 2017-07-22 10:58 | Hospitalist Progress Note ---
Hospitalist Progress Note Date of Service Jul 22, 2017. (Shannon Perez ., ASHLEY) Subjective Pt evaluation today including: conversation w/ patient, physical exam, lab review, review of studies, review of inpatient medication list Voiding: no voiding problems Patient resting in bed s/p cardiac cath. Feeling well. Anxious for discharge- possible tomorrow. Denies any chest pain, SOB, or other significant pain. Patient denies any fever, chills, sweats, lightheadedness, dizziness, vision changes, CP, palpitations, edema, SOB, wheezing, cough, abdominal pain, nausea, vomiting, diarrhea, urinary symptoms, melena, numbness/tingling, weakness, muscle/joint pain, anxiety/depression, active bleeding, or new skin discoloration/changes. (Shannon Perez ., VICKYC) Medications Current Inpatient Medications Medications (Trade) Dose Ordered Sig/Rosalie Route Start Time Stop Time Status Last Admin Dose Admin Acetaminophen (Tylenol Tab) 650 mg Q4H PRN PO 07/16/17 21:00 08/15/17 20:59 Nitroglycerin (Nitrostat Tab) 0.4 mg UD PRN SL 07/16/17 21:00 08/15/17 20:59 Aspirin (Ecotrin Tab) 81 mg QAM PO 07/17/17 09:00 08/16/17 08:59 07/22/17 10:13 81 MG Ondansetron HCl (Zofran Odt) 8 mg Q6H PRN PO 07/16/17 21:00 08/15/17 20:59 Levothyroxine Sodium (Synthroid Tab) 50 mcg DAILYBB PO 07/17/17 06:00 08/16/17 06:59 07/22/17 05:54 50 MCG Heparin Sodium/ Dextrose 500 ml @ 33 mls/hr [id number] PRN IV 07/16/17 22:30 08/15/17 22:29 07/21/17 14:36 33 MLS/HR Lorazepam (Ativan Tab) 0.5 mg Q8 PRN PO 07/17/17 11:15 08/16/17 11:14 07/17/17 11:57 0.5 MG Atorvastatin Calcium (Lipitor Tab) 40 mg QAM PO 07/18/17 09:00 2/10/18 08:59 07/22/17 10:13 40 MG Sacubitril/ Valsartan (Entresto 24-26 Mg) 1 tab Q12H PO 07/19/17 18:00 08/18/17 17:59 Future hold 07/22/17 05:54 1 TAB Carvedilol (Coreg Tab) 6.25 mg BID PO 07/19/17 17:30 08/18/17 17:29 07/22/17 10:14 6.25 MG Potassium Chloride (Klor-Con Tab) 20 meq TID PO 07/21/17 09:00 08/20/17 08:59 07/22/17 10:14 20 MEQ Furosemide (Lasix Tab) 40 mg QAM PO 07/23/17 09:00 08/22/17 08:59 Furosemide (Lasix Tab) 40 mg NOW ONCE PO 07/22/17 15:00 07/22/17 15:01 (Shannon Perez, ASHLEY) Objective Vital Signs Date Time Temp Pulse Resp B/P (MAP) Pulse Ox O2 Delivery O2 Flow Rate FiO2 07/22/17 10:15 99 20 115/80 (92) 96 Room Air 07/22/17 10:00 101 20 116/77 (90) 95 Room Air 07/22/17 09:45 96 20 115/78 (90) 93 Room Air 07/22/17 09:30 93 20 113/75 (88) 94 Room Air 07/22/17 09:15 97 20 131/86 (101) 94 Room Air 07/22/17 09:09 36.4 100 20 131/86 (101) 95 Room Air 07/22/17 09:01 95 16 123/84 (97) 96 Room Air 07/22/17 08:56 99 18 129/91 (104) 96 Room Air 07/22/17 08:51 98 18 120/100 (107) 96 Room Air 07/22/17 08:46 99 18 117/85 (96) 95 Room Air 07/22/17 08:00 Room Air 07/22/17 04:09 Room Air 07/22/17 03:35 36.6 96 18 106/68 (81) 93 Room Air 07/22/17 00:15 Room Air 07/21/17 23:40 36.6 94 17 102/64 (77) 94 Room Air 07/21/17 20:21 Room Air 07/21/17 19:17 36.8 87 20 121/80 (94) 96 Room Air 07/21/17 15:20 36.5 79 18 103/68 (80) 96 Room Air 07/21/17 14:59 Room Air 07/21/17 11:10 Room Air 07/21/17 10:59 36.3 82 19 90/61 (71) 96 Room Air (Shannon Perez PA-C) Physical Exam General Appearance: no apparent distress Eyes: normal inspection, PERRL ENT: hearing grossly normal Neck: supple Respiratory/Chest: lungs clear, no respiratory distress, no accessory muscle use Cardiovascular: regular rate, rhythm Abdomen: normal bowel sounds, non tender, soft Extremities: no calf tenderness, + swelling (trace pitting edema of bilateral lower extremities ) Neurologic/Psychiatric: alert, normal mood/affect, oriented x 3 Skin: normal color, warm/dry, no rash (Shannon Perez, ASHLEY) Laboratory Results Last 24 Hours Test 07/22/17 06:14 07/22/17 08:16 07/22/17 08:29 07/22/17 08:44 White Blood Count 5.61 K/uL Red Blood Count 4.90 M/uL Hemoglobin 14.6 g/dL Hematocrit 44.6 % Mean Corpuscular Volume 91.0 fL Mean Corpuscular Hemoglobin 29.8 pg Mean Corpuscular Hemoglobin Concent 32.7 g/dl RDW Standard Deviation 46.9 fL RDW Coefficient of Variation 14.1 % Platelet Count 357 K/uL Mean Platelet Volume 9.6 fL Activated Partial Thromboplast Time 71.3 SECONDS Partial Thromboplastin Ratio 2.7 Sodium Level 142 mmol/L Potassium Level 3.4 mmol/L Chloride Level 104 mmol/L Carbon Dioxide Level 28 mmol/L Anion Gap 10.0 mmol/L Blood Urea Nitrogen 13 mg/dl Creatinine 0.94 mg/dl Est Creatinine Clear Calc Drug Dose 108.7 ml/min Estimated GFR () 101.7 Estimated GFR (Non- 87.8 BUN/Creatinine Ratio 14.0 Random Glucose 94 mg/dl Calcium Level 9.3 mg/dl Kaolin Activated Coagulation Time 147 SECONDS Bedside Blood Gas pH (LAB) 7.45 7.45 Bedside Blood Gas pCO2 (LAB) 47 mmHg 42 mmHg Bedside Blood Gas pO2 (LAB) < 32 mmHg 63 mmHg Bedside Blood Gas HCO3 (LAB) 33 meq/L 29 meq/L Bedside Blood Gas Total CO2 34 mEq/l 30 mEq/l Bedside Blood Gas Base Excess (LAB) 9.0 meq/L 5.0 meq/L Bedside Blood Gas O2 Saturation 62.0 % 93.0 % (Shannon Perez ., PA-C) Assessment and Plan Pt is a 62 y/o male with a h/o borderline HTN, GERD, who presents with progressively worsening SOB, leg swelling, and fatigue for about 2 weeks. He was found to be in florid acute CHF and had a positive troponin. Acute combined systolic and diastolic CHF, elevated troponin secondary to ? demand ischemic: - Tele for cardiac monitoring - Trend cardiac enzymes- peak trop 0.256 - Treated w/ Dobutamine and Lasix IV BID- stop Dobutamine gtt and IV Lasix s/p catheterization and start Lasix 40 mg daily - Monitor I&Os and daily weights- negative 8.6L during stay - Treated w/ Heparin gtt prior to cardiac cath- discontinue today s/p cath - Coreg 6.25 mg BID, Entresto BID, ASA 81 mg daily, Lipitor 40 mg daily - ECHO- EF 15-20%, global LV dysfunction - V/Q scan indeterminate for PE, bilateral venous Doppler w/out DVT - Cardiology consulted, appreciate recommendations -- s/p cardiac cath on 07/[address] Elizabeth- mild nonobstructive CAD, nonischemic cardiomyopathy OBEY, likely secondary to poor perfusion- RESOLVED Hypokalemia, secondary to Lasix- IMPROVING: KCl 20mEq TID, follow K Hypothyroidism- TSH 11, T3 low at 1.7: - Started Synthroid 50 mcg daily - Repeat TSH in 6 weeks as outpatient Paroxysmal SVT, secondary to Dobutamine: Decreased Dobutamine dose, no further episodes Situational anxiety: Ativan PRN- has not required since 07/17 GERD: Resume Prevacid at discharge DVT prophylaxis: Heparin gtt Code status: LEVEL I, FULL Dispo: s/p cardiac cath today, monitor on tele overnight and hopeful discharge tomorrow - Cardiology to setup heart failure clinic (Shannon Perez ., PA-C) Supervising Note Dr. Ceja I performed a history and physical examination on the patient. I reviewed above note and agree with it. I discussed plan with APC and patient. During my face to face encounter with the patient, I answered all of the patient's questions. (Jordy Ceja M.D.)
[2017-07-22] MEDS ORDERED: FUROSEMIDE 40 MG TAB PO ONE (15:00)
--- NOTE | 2017-07-22 18:33 | CARDIOLOGY PROGRESS NOTE ---
DATE: 07/22/2017 TIME: 17:56 p.m. SUBJECTIVE: Mr. Washington was seen earlier today. He underwent cardiac catheterization earlier this morning. He was found to have mild nonobstructive CAD involving the LMCA. He had no visualized obstructive CAD. Right heart catheterization demonstrated mild pulmonary hypertension with only mildly elevated left-sided filling pressures. He tolerated the procedure well. He denies chest pain, shortness of breath, orthopnea, PND, syncope, near syncope, or palpitations. His and daughter were present at the bedside. His had mentioned that he was consuming larger amounts of alcohol up until 07/01/2017. He is drinking at least 6 pack per night. This was discussed with him and he admitted that he was consuming large amounts of alcohol for several years. OBJECTIVE: VITAL SIGNS: Temperature 36.5 degrees, heart rate 85 beats per minute, respiration rate 20, blood pressure 91/58 mmHg, oxygen saturation 93% on room. I's and O's negative 943 mL yesterday, weight is 103.1 kilograms, cumulative fluid balance for the hospitalization is negative 8.9 liters. GENERAL: In no acute distress. He is alert and oriented. NECK: No significant JVD. CARDIAC EXAM: No ventricular heave, regular, normal S1 and S2. No audible murmurs, rubs or gallops. LUNGS: Clear to auscultation bilaterally without wheezes, rales or rhonchi. ABDOMEN: Soft, nontender, nondistended. Normoactive bowel sounds. EXTREMITIES: No significant pitting edema. No cyanosis. PSYCHIATRIC: Affect appears appropriate. MEDICATIONS: Include aspirin 81 mg daily, Lipitor 40 mg daily, carvedilol 6.25 mg p.o. b.i.d., Lasix 40 mg IV b.i.d., dobutamine 2.5 mcg per kilogram per minute, heparin drip, Entresto 24/26 mg 1 tablet twice daily, potassium chloride 20 mEq p.o. t.i.d. Telemetry personally reviewed. He had approximately 10 beats of ventricular tachycardia in the past 24 hours. He also had an atrial arrhythmia which was nonsustained, likely atrial tachycardia. He was asymptomatic for these events. LABORATORY DATA: White blood cell count is 5.61, hemoglobin 14.6, platelets 357. Sodium 142, potassium 3.4, BUN 13, creatinine 0.94. Cardiac catheterization report as noted above. Chart reviewed. ASSESSMENT AND PLAN: 1. Acute systolic congestive heart failure: On exam, he appears euvolemic. Left-sided filling pressures are only slightly elevated. Dobutamine was discontinued. IV Lasix was discontinued and he was started on Lasix 40 mg p.o. daily. Continue low sodium diet, less than 2000 mg daily, which was discussed both with the patient and his and daughter present. Daily weights at home and he was asked to write them down to bring to each appointment. 2. Cardiomyopathy: He has a nonischemic cardiomyopathy. Further history was obtained today and there is potential that his cardiomyopathy is related to alcohol. We will also order other labs to evaluate further other possible secondary causes. We discussed in detail the importance of abstaining from alcohol consumption going forward so that hopefully his cardiac function improves. Continue Entresto at current dose for now. This will hopefully be increased as an outpatient if tolerated. Continue carvedilol 6.25 mg twice daily today. Dobutamine drip has been discontinued. We will further titrate medications as able. Would continue current medications unless his systolic blood pressure is less than 90 or he has symptomatic hypotension. 3. Paroxysmal ventricular tachycardia and supraventricular tachycardia: He is asymptomatic. Dobutamine has been discontinued and hopefully his arrhythmias will improve. No sustained ventricular arrhythmia. Continue beta ollie which will hopefully be titrated over time if tolerated. Continue to replete potassium. 4. Coronary artery disease: Nonobstructive coronary artery disease. Continue aspirin 81 mg daily. Continue high intensity statin therapy. 5. Aortic regurgitation: Not severe. 6. Disposition: Follow up in heart failure clinic is being arranged. If he continues to do well, would be okay for discharge from a cardiac standpoint tomorrow. Plan of care has been discussed with Dr. Ceja of the primary hospitalist service.
[2017-07-23 04:09] VITALS: BP 101/67; PULSE 93; TEMP 36.3; O2SAT 95
[2017-07-23] MEDS: SACUBITRIL-VALSARTAN 24-26 MG TAB PO SCH (05:48)
[2017-07-23] MEDS: LEVOTHYROXINE 50 MCG TAB PO SCH (05:48)
--- NOTE | 2017-07-23 06:46 | CARDIOLOGY PROGRESS NOTE ---
DATE: 07/23/2017 TIME: 6:28 a.m. SUBJECTIVE: Mr. Washington denies chest pain, shortness of breath, syncope, near syncope, palpitations, or edema. He tolerated cardiac catheterization yesterday well without known complication. Carvedilol was held last night due to mild hypotension. OBJECTIVE: VITAL SIGNS: Temperature 36.3 degrees, heart rate 93 beats per minute, respiration rate 19, blood pressure 101/67 mmHg. Oxygen saturation is 95% on room air. I's and O's negative 800 mL yesterday, weight is 105.5 kg. GENERAL: No acute distress. He is alert and oriented. NECK: No JVD. CARDIAC EXAM: No ventricular heave. Regular, normal S1, S2. There were no audible murmurs, rubs or gallops. LUNGS: Clear to auscultation bilaterally without wheezes, rales or rhonchi. ABDOMEN: Soft, nontender, nondistended. Normoactive bowel sounds. EXTREMITIES: No cyanosis or pitting edema. Right radial catheterization site is clean, dry and intact without erythema or discharge. 2+ right radial pulse. Right femoral venous catheter site is clean, dry and intact without hematoma. PSYCHIATRIC: Affect appears appropriate. MEDICATIONS: Include aspirin 81 mg daily, atorvastatin 40 mg daily, carvedilol 6.25 mg p.o. b.i.d., Lasix 40 mg p.o. daily, Synthroid 50 mcg daily, potassium chloride 20 mEq t.i.d., Entresto 24/26 mg p.o. q. 12 hours. Telemetry personally reviewed. No further ventricular tachycardia. Two episodes of nonsustained paroxysmal atrial tachycardia. Otherwise, sinus rhythm. LABORATORY DATA: For today are currently pending. ASSESSMENT AND PLAN: 1. Acute systolic congestive heart failure: He appears euvolemic and well compensated. Continue Lasix 40 mg p.o. daily. We once again discussed the importance of a low sodium diet, less than 2000 mg daily. Recommended daily weights. Heart failure follow up is scheduled for early next week. 2. Cardiomyopathy: Nonischemic cardiomyopathy. Secondary workup has been ordered in the outpatient setting and he was instructed to have these labs done within the next week. Continue carvedilol 6.25 mg twice daily. Hold orders have been edited. Hold if systolic blood pressure is less than 90 mmHg or if symptomatic hypotension. Continue Entresto on current dose. These medications will be titrated as an outpatient. Dobutamine drip has been discontinued. There is possibility that the etiology of his cardiomyopathy is related to his chronic alcohol abuse. He has been advised to refrain from consuming alcohol. 3. Paroxysmal ventricular tachycardia: This occurred while on dobutamine drip. He has not had recurrences. His dobutamine drip has been discontinued. 4. Paroxysmal atrial tachycardia: He continues to have intermittent episodes, but he is asymptomatic. Continue beta ollie. He had 2 episodes overnight but did not receive his evening dose of carvedilol. Continue to replete potassium as per primary service. 5. Coronary artery disease: Nonobstructive coronary artery disease. Continue aspirin 81 mg daily as well as high intensity statin therapy. 6. Aortic regurgitation: This will be followed as an outpatient. 7. Alcohol abuse: He has been advised to refrain from alcohol consumption as it could be associated with his cardiomyopathy. 10. Disposition: He can be discharged home today from a cardiac standpoint. Heart failure follow up has already been arranged and been entered in the [facility]. Cardiology nursing staff will call him within the next few days to ensure that he is doing well at home on his new medications.
[2017-07-23 07:56] LABS: PTT PATIENT 25.7 SECONDS (21.0-31.0)
[2017-07-23 08:00] VITALS: BP 100/70; PULSE 92; PULSE 93; TEMP 36.3; O2SAT 96
[2017-07-23 08:14] LABS: CALCIUM 9.2 mg/dl (8.5-10.1); CREATININE 0.96 mg/dl (0.60-1.40)
[2017-07-23] MEDS: ASPIRIN 81 MG ECTAB PO SCH (08:24)
[2017-07-23] MEDS: ATORVASTATIN 40 MG TAB PO SCH (08:24)
[2017-07-23] MEDS: CARVEDILOL 6.25 MG TAB PO SCH (08:24)
[2017-07-23] MEDS ORDERED: FUROSEMIDE 40 MG TAB PO SCH (09:00)
[2017-07-23] MEDS: POTASSIUM CHLORIDE 20 MEQ TABCR PO SCH (09:09)
[2017-07-23 09:32] VITALS: BP 101/67; PULSE 93; TEMP 36.3; O2SAT 95
[2017-07-23] MEDS ORDERED: ASPEC81 PO (10:49)
[2017-07-23] MEDS ORDERED: MCRK20 PO (10:49)
[2017-07-23] MEDS ORDERED: CRG625 PO (10:49)
[2017-07-23] MEDS ORDERED: LPT40 PO (10:49)
[2017-07-23] MEDS ORDERED: SYN50 PO (10:49)
[2017-07-23] MEDS ORDERED: LSX40 PO (10:49)
[2017-07-23] MEDS ORDERED: SACU1TAB PO (10:49)
[2017-07-23] MEDS ORDERED: DULO60CA44 PO (10:50)
--- NOTE | 2017-07-23 10:52 | Discharge Instructions ---
Discharge Instructions Date of Service Jul 23, 2017. Admission Reason for Admission: Chf, Elevated Troponin Discharge Discharge Diagnosis / Problem: Non ischemic cardiomyopathy Discharge Goals Goal(s): Decrease discomfort, Improve function Activity Recommendations Activity Limitations: as noted below Lifting Limitations: gradually increase as tolerated Driving or Machine Use: no limitations . Instructions / Follow-Up Instructions / Follow-Up Follow up in 1-2 weeks with PCP Current Hospital Diet Patient's current hospital diet: Low Sodium Diet (2gm Na), AHA Diet (Heart Healthy) Discharge Diet Recommended Diet: AHA Diet (Heart Healthy) Pending Studies Studies pending at discharge: no Medical Emergencies . Who to Call and When: Medical Emergencies: If at any time you feel your situation is an emergency, please call 911 immediately. . Non-Emergent Contact Non-Emergency issues call your: Primary Care Provider, Cotton Machine Operator Call Non-Emergent contact if: you have any medication questions SOB worsens. . . "Provider Documentation" section prepared by Jordy Ceja. . Outboard System Operator Recommendations Outboard System Operator Recommendations: ACTIVITY RECOMMENDATIONS: Excess manipulation of the wrist should be avoided for the next 24-48 hours. * No lifting over 2 pounds (approximately a 1/2 gallon of milk) with the utilized arm for 24 hours. * No strenuous activity such as bowling or tennis for 3 days. * Keep the site of the procedure covered with a bandage for 24 hours. *You may shower the day after the procedure. Do not take a tub bath or submerge the puncture site in water for the next 3 days. *Do not operate any motorized equipment for 3 days. SPECIAL CARE INSTRUCTIONS: The site may be slightly bruised and sore following your procedure. Should any of the following occur, contact the Dr. who performed your procedure. 1. Redness/inflammation, swelling, chills, or fever, or colored drainage at procedure site within 3-7 days after your procedure. 2. Coldness, discoloration, ongoing numbness, severe pain, or swelling. Expect mild tingling of hand and tenderness at the puncture site for up to three days. If this persists beyond three days, or other symptoms develop, notify the DrRene who performed your procedure. BLEEDING: If the procedure site on your wrist begins to bleed, do not panic 1. Place 1 or 2 fingers firmly just slightly above the insertion site to stop the bleeding. You may be able to feel your pulse as you hold pressure. 2. Lift your finger after 5 minutes to see if the bleeding has stopped. 3. Once the bleeding has stopped, gently wipe the wrist area clean with a bandage. * If the bleeding from your wrist does not stop after 10 minutes, or if there is a large amount of bleeding or spurting, call 911 (do not drive yourself to the hospital). SKIN IRRITATION: * You may experience some redness and/or swelling in the area where radiation was administered. If any skin irritation occurs, please contact your family physician. FOLLOW UP VISIT: Keep any scheduled doctor appointments. VTE Core Measure Inpt VTE Proph given/why not?: Other Anticoagulation
--- NOTE | 2017-07-23 18:44 | Discharge Summary ---
Discharge Summary Date of Service Jul 23, 2017. Discharge Summary Admission Date: Jul 16, 2017 at 21:00 Discharge Date: Jul 23, 2017 Discharge Disposition: Home Principal Diagnosis: Non-ischemic cardiomyopathy Problems/Secondary Diagnoses: Alcohol abuse Immunizations: Have You Had Influenza Vaccine: Unknown History of Tetanus Vaccine?: Yes Tetanus Immunization Date: May 15, 2011 History of Pneumococcal: Yes Pneumococcal Date: Jun 19, 2011 History of Hepatitis B Vaccine: Unknown Procedures: Procedure Note Procedure Date Jul 22, 2017. Pre-Procedure Diagnosis CHF, Cardiomyopathy Procedure(s) Performed Coronary Angiography, Left Heart Cath, Right Heart Cath Internal Medicine Physician Assistant Dr. Elizabeth Summary of Findings Coronary angiography: 1. Left main coronary artery: Ostial LM CA 10% smooth narrowing. Distal LM CA 20% narrowing. 2. Left anterior descending: The LAD is a large caliber vessel that extends to the apex. It gives rise to a very large caliber D1 with large lateral branch. No significant CAD noted within the LAD system. 3. Circumflex: The circumflex is a large caliber vessel. It gives rise to a medium caliber OM1, small caliber OM2, and medium caliber OM3. No significant CAD noted within the circumflex system. 4. Right coronary artery: The RCA is very large in caliber and a dominant vessel. There are large caliber posterior lateral branch and PDA vessels. No significant CAD noted within the RCA system. Left heart catheterization: 1. Left ventriculography was not performed. 2. The peak to peak gradient across the aortic valve was approximately 4 mmHg. No significant aortic stenosis. 3. Mildly elevated LVEDP; 15mmHg. Right heart catheterization: 1. Pulmonary capillary wedge pressure V-wave 18 with a mean of 13mmHg. 2. Mild pulmonary hypertension 40/15 with a mean of 23mmHg. 3. Right ventricular pressure 40/0 with EDP of 7mmHg. 4. Normal RA pressure. A-wave 7; V-wave 5; mean 4mmHg. 5. Cardiac output via thermodilution 6.5 L/min with a cardiac index of 2.8 L/min /m2. 6. PVR 1.5 Wood units. Impression: 1. Nonischemic cardiomyopathy. 2. Mild nonobstructive CAD. 3. Slightly elevated left sided filling pressures. 4. No significant aortic stenosis. 5. Normal cardiac output. Plan: 1. Optimize medical therapy. 2. Alcohol cessation. Recommendations Medical therapy and/or Counseling Consultations: Was seen by Cardiology Had a cath done as noted above. Heart failure follow up has already been arranged and been entered in the [facility]. Cardiology nursing staff will call him within the next few days to ensure that he is doing well at home on his new medications. Medication Reconciliation New Medications: Duloxetine Hcl (Cymbalta) 60 Mg Cap 60 MG PO DAILY for 30 Days, #30 CAP Aspirin (Aspirin EC Low Dose) 81 Mg Ectab 81 MG PO QAM for 30 Days, #30 TABS Atorvastatin (Lipitor) 40 Mg Tab 40 MG PO QAM for 30 Days, #30 TAB 1 Refill Carvedilol (Carvedilol) 6.25 Mg Tab 6.25 MG PO BID for 30 Days, #60 TAB Furosemide (Furosemide) 40 Mg Tab 40 MG PO QAM for 30 Days, #30 TAB 1 Refill Levothyroxine Sodium (Synthroid) 50 Mcg Tab 50 MCG PO DAILYBB for 30 Days, #30 TAB 1 Refill Potassium Chloride (Klor-Con M20) 20 Meq Tabcr 20 MEQ PO DAILY for 30 Days, #30 TABS Sacubitril-Valsartan (Entresto 24-26 mg) 1 Tab Tab 1 TAB PO Q12H for 30 Days, #60 TAB 1 Refill Continued Medications: Lansoprazole (Prevacid) 15 Mg Capcr 15 MG PO QAM, CAP Discontinued Medications: Ibuprofen Tab (Advil) 200 Mg Tab 400 MG PO QAM, TAB Meloxicam (Mobic) 15 Mg Tab 15 MG PO QAM, TAB Discharge Exam Review of Systems: Constitutional: No fever, No chills Eyes: No worsening of vision, No eye pain ENT: No hearing loss Respiratory: No cough Cardiovascular: No chest pain, No orthopnea Abdomen: No pain, No nausea Genitourinary - Female: + dysuria Neurologic: No memory loss, No paralysis Psychiatric: No depression symptoms Endocrine: No fatigue, No excessive thirst Integumentary: No rash, No itch Physical Exam: General Appearance: WD/WN, no apparent distress Eyes: normal inspection ENT: normal ENT inspection Neck: supple, no adenopathy Respiratory/Chest: chest non-tender, lungs clear, normal breath sounds Cardiovascular: regular rate, rhythm, no edema Abdomen / GI: normal bowel sounds, non tender, soft Extremities: normal inspection Neurologic/Psychiatric: alert, oriented x 3 Skin: normal color Lymphatic: no adenopathy Hospital Course Pt is a 62 y/o male with a h/o borderline HTN, GERD, who presents with progressively worsening SOB, leg swelling, and fatigue for about 2 weeks. He was found to be in florid acute CHF and had a positive troponin. 1. Acute systolic congestive heart failure: - Tele for cardiac monitoring - Trend cardiac enzymes- peak trop 0.256 - Treated w/ Dobutamine and Lasix IV BID- stop Dobutamine gtt and IV Lasix s/p catheterization and start Lasix 40 mg daily - Monitor I&Os and daily weights- negative 8.6L during stay - Treated w/ Heparin gtt prior to cardiac cath- discontinue today s/p cath - Coreg 6.25 mg BID, Entresto BID, ASA 81 mg daily, Lipitor 40 mg daily - ECHO- EF 15-20%, global LV dysfunction - V/Q scan indeterminate for PE, bilateral venous Doppler w/out DVT - Cardiology consulted, appreciate recommendations -- s/p cardiac cath on 07/[address] Elizabeth- mild nonobstructive CAD, nonischemic cardiomyopathy -He appears euvolemic and well compensated. -Continue Lasix 40 mg p.o. daily. -discussed the importance of a low sodium diet, less than 2000 mg daily. Recommended daily weights. - Heart failure follow up is scheduled for early next week. 2. Cardiomyopathy: Nonischemic cardiomyopathy. -Continue carvedilol 6.25 mg twice daily. -Hold if systolic blood pressure is less than 90 mmHg or if symptomatic hypotension. -Continue Entresto on current dose. -Titrate as outpatient. -Dobutamine drip has been discontinued. -There is possibility that the etiology of his cardiomyopathy is related to his chronic alcohol abuse. He has been advised to refrain from consuming alcohol. 3. Paroxysmal ventricular tachycardia: This occurred while on dobutamine drip. He has not had recurrences while off drip. 4. Paroxysmal atrial tachycardia: He continues to have intermittent episodes, but he is asymptomatic. Continue beta ollie. He had 2 episodes overnight once but did not receive his evening dose of carvedilol. 5. Coronary artery disease: Nonobstructive coronary artery disease. Continue aspirin 81 mg daily as well as high intensity statin therapy. 6. Aortic regurgitation: This will be followed as an outpatient. 7. Alcohol abuse: He has been advised to refrain from alcohol consumption as it could be associated with his cardiomyopathy. 8. OBEY, likely secondary to poor perfusion- RESOLVED 9. Hypokalemia, secondary to Lasix- improved. teresaow K as outpatient 10. Hypothyroidism- TSH 11, T3 low at 1.7: - Started Synthroid 50 mcg daily - Repeat TSH in 6 weeks as outpatient 11. Situational anxiety: Ativan PRN- has not required since 07/17 12. GERD: Resume Prevacid at discharge 13. Musculoskeletal pain Patient started on Cymbalta. Recommended to stop NSAID use. Total Time Spent: Greater than 30 minutes This includes examination of the patient, discharge planning, medication reconciliation, and communication with other providers. Discharge Instructions Please refer to the electronic Patient Visit Report (Discharge Instructions) for additional information. Follow-Up as discharge instructions. will see cardio within first or second week. Additional Copies To Shakila Kong [email or web address]
== END 2017-07-23 11:40 | disposition home or self-care (01) | DRG 286 ==
LOC: C.EDB 17:53 → C.2T 21:00 → ENRESERV 21:21
PROVIDERS: ADMIT Hospitalist; ATTEND Internal Medicine Sports Medicine
PROC: 4A023N8 Measurement of Cardiac Sampling and Pressure, Bilateral, Percutaneous Approach (ICD-10-PCS; principal; 2017-07-22 07:07)
PROC: B2111ZZ Fluoroscopy of Multiple Coronary Arteries using Low Osmolar Contrast (ICD-10-PCS; principal; 2017-07-22 07:07)
DX: I42.9 Cardiomyopathy, unspecified (principal); I50.21 Acute systolic (congestive) heart failure; N17.9 Acute kidney failure, unspecified; I47.1 Supraventricular tachycardia; I47.2 Ventricular tachycardia; F41.8 Other specified anxiety disorders; J45.909 Unspecified asthma, uncomplicated; F32.9 Major depressive disorder, single episode, unspecified; K21.9 Gastro-esophageal reflux disease without esophagitis; G47.00 Insomnia, unspecified; E78.5 Hyperlipidemia, unspecified; I35.1 Nonrheumatic aortic (valve) insufficiency; E87.6 Hypokalemia; T50.2X5A Adverse effect of carbonic-anhydrase inhibitors, benzothiadiazides and other diuretics, initial encounter; Y92.019 Unspecified place in single-family (private) house as the place of occurrence of the external cause

== ENCOUNTER → 2017-07-29 | Outpatient (CLI) | payer OTHER ==
[~2017-07-29] MED LIST changes: +ASPEC81 PO; -CLC100 PO; +CRG625 PO; +DULO60CA44 PO; +LANS15CA6 PO; -LDDP5 TD; +LPT40 PO; -LSN/10125 PO; +LSX40 PO; +MCRK20 PO; -MRLP17 PO; -OMEP20CA9 PO; -OXYC7.5T62 PO; +SACU1TAB PO; +SYN50 PO
[2017-07-29 10:52] LABS: BLOOD UREA NITROGEN 24 mg/dl (7-18); CALCIUM 9.5 mg/dl (8.5-10.1); CARBON DIOXIDE 26 mmol/L (21-32); CREATININE 1.14 mg/dl (0.60-1.40); GLUCOSE 94 mg/dl (70-99); POTASSIUM 4.4 mmol/L (3.5-5.1); SODIUM 137 mmol/L (136-145)
[2017-07-29 10:56] LABS: TRANSFERRIN 327 mg/dl (200-360)
== END | disposition home or self-care (01) ==
LOC: C.LAB1850 09:44
PROVIDERS: ATTEND Internal Medicine Cardiovascular Disease
DX: I50.22 Chronic systolic (congestive) heart failure (principal); I42.8 Other cardiomyopathies

== ENCOUNTER → 2017-08-08 | Outpatient (CLI) | payer OTHER | END | disposition home or self-care (01) | LOC: C.LAB 18:07 | PROVIDERS: ATTEND Internal Medicine Cardiovascular Disease | DX: I42.8 Other cardiomyopathies (principal) ==

== ENCOUNTER → 2017-08-29 | Outpatient (CLI) | payer OTHER ==
[~2017-08-29] MED LIST changes: -DULO60CA44 PO
[2017-08-29 19:46] LABS: BLOOD UREA NITROGEN 25 mg/dl (7-18); CALCIUM 9.3 mg/dl (8.5-10.1); CARBON DIOXIDE 29 mmol/L (21-32); CREATININE 0.99 mg/dl (0.60-1.40); GLUCOSE 77 mg/dl (70-99); POTASSIUM 4.3 mmol/L (3.5-5.1); SODIUM 139 mmol/L (136-145)
== END | disposition home or self-care (01) ==
LOC: C.LAB 18:08
PROVIDERS: ATTEND Physician Assistant
DX: E03.9 Hypothyroidism, unspecified (principal); I50.22 Chronic systolic (congestive) heart failure

== ENCOUNTER → 2017-10-04 | Outpatient (CLI) | payer OTHER ==
--- NOTE | 2017-10-04 18:24 | DIAGNOSTIC IMAGING REPORT ---
TWO VIEW CHEST CLINICAL HISTORY: Wheezing. FINDINGS: PA and lateral chest radiographs are compared to study dated 07/16/2017 and correlated with chest CT dated 07/08/2016. The PA view is degraded by patient rotation. The heart is enlarged. The pulmonary vasculature is noncongested. Chronic interstitial thickening is similar to previous. No airspace consolidation is seen typical for pneumonia. There is a small right pleural effusion with right basilar atelectasis. There is no pneumothorax. The skeletal structures are osteopenic. The bony thorax appears intact. IMPRESSION: 1. Cardiomegaly without radiographic evidence of congestive failure. 2. There is a small right pleural effusion with associated atelectasis. 3. No airspace consolidation is seen typical for pneumonia. Electronically signed by: Donnell Starks M.D. 10/04/2017 6:23 PM Dictated Date/Time: 10/04/2017 6:20 PM
== END | disposition home or self-care (01) ==
LOC: C.RAD 17:31
PROVIDERS: ATTEND Nurse Practitioner
DX: R06.02 Shortness of breath (principal); I51.7 Cardiomegaly; J90 Pleural effusion, not elsewhere classified; R91.8 Other nonspecific abnormal finding of lung field

== ENCOUNTER → 2017-10-28 | Outpatient (CLI) | payer OTHER ==
[~2017-10-28] MED LIST changes: -ASPEC81 PO; +ASPI-320 PO
[2017-10-28 09:51] LABS: ALBUMIN 3.4 gm/dl (3.4-5.0); AST/SGOT 26 U/L (15-37); BLOOD UREA NITROGEN 18 mg/dl (7-18); CALCIUM 9.3 mg/dl (8.5-10.1); CARBON DIOXIDE 29 mmol/L (21-32); CREATININE 0.96 mg/dl (0.60-1.40); GLUCOSE 97 mg/dl (70-99); POTASSIUM 4.2 mmol/L (3.5-5.1); SODIUM 139 mmol/L (136-145)
[2017-10-28 09:58] LABS: ALKALINE PHOSPHATASE 150 U/L (45-117); ALT/SGPT 35 U/L (12-78); TOTAL PROTEIN 7.4 gm/dl (6.4-8.2)
== END | disposition home or self-care (01) ==
LOC: C.LAB 07:09
PROVIDERS: ATTEND Physician Assistant
DX: I50.22 Chronic systolic (congestive) heart failure (principal)

== ENCOUNTER → 2017-11-18 | Outpatient (CLI) | payer OTHER ==
[2017-11-18 19:40] LABS: BLOOD UREA NITROGEN 24 mg/dl (7-18); CALCIUM 9.1 mg/dl (8.5-10.1); CARBON DIOXIDE 30 mmol/L (21-32); GLUCOSE 88 mg/dl (70-99); POTASSIUM 4.4 mmol/L (3.5-5.1); SODIUM 142 mmol/L (136-145)
== END | disposition home or self-care (01) ==
LOC: C.LAB 18:23
PROVIDERS: ATTEND Physician Assistant
DX: I50.22 Chronic systolic (congestive) heart failure (principal)

== ENCOUNTER → 2018-02-18 | Outpatient (CLI) | payer OTHER ==
[2018-02-18 18:33] LABS: BASO % 0.7 %; BASO ABS # 0.06 K/uL (0-0.2); EOS % 20.7 %; EOS ABS # 1.68 K/uL (0-0.5); HEMATOCRIT 39.2 % (42-52); HEMOGLOBIN 13.2 g/dL (14.0-18.0); IG# 0.02 K/uL (0.00-0.02); LYMPH % 26.4 %; LYMPH ABS # 2.14 K/uL (1.2-3.4); MEAN CELL VOLUME 91.8 fL (80-100); MEAN CORPUSCULAR HEMOGLOBIN 30.9 pg (25-34); MEAN CORPUSCULAR HGB CONC 33.7 g/dl (32-36); MEAN PLATELET VOLUME 9.5 fL (7.4-10.4); MONO % 9.5 %; MONO ABS # 0.77 K/uL (0.11-0.59); NEUT % 42.5 %; NEUT ABS # 3.45 K/uL (1.4-6.5); PLATELET COUNT 378 K/uL (130-400); RED CELL DISTRIBUTION WIDTH CV 13.1 % (11.5-14.5); RED CELL DISTRIBUTION WIDTH SD 43.7 fL (36.4-46.3); WHITE BLOOD COUNT 8.12 K/uL (4.8-10.8)
[2018-02-18 19:08] LABS: ALBUMIN 3.3 gm/dl (3.4-5.0); ALKALINE PHOSPHATASE 156 U/L (45-117); ALT/SGPT 21 U/L (12-78); AST/SGOT 18 U/L (15-37); BLOOD UREA NITROGEN 25 mg/dl (7-18); CARBON DIOXIDE 28 mmol/L (21-32); CREATININE 1.09 mg/dl (0.60-1.40); GLUCOSE 84 mg/dl (70-99); POTASSIUM 4.5 mmol/L (3.5-5.1); SODIUM 139 mmol/L (136-145)
== END | disposition home or self-care (01) ==
LOC: C.LAB 17:41
PROVIDERS: ATTEND Physician Assistant
DX: I42.8 Other cardiomyopathies (principal); E03.9 Hypothyroidism, unspecified; I50.22 Chronic systolic (congestive) heart failure